=== PATIENT | female | born 1940 | race African-American/Black ===

== ENCOUNTER → 2023-09-16 | Outpatient (CLI) | payer MEDICARE, MEDICAID, SELFPAY ==
[2023-09-16 12:45] LABS: Absolute Neutrophil Count 4.4 X10^3/uL (2.0-7.7); Basophil# 0.02 X10^3/uL; Basophil% 0.3 % (0-1); Eosinophil# 0.17 X10^3/uL; Eosinophils% 2.3 % (0-5); Hemoglobin 12.9 g/dL (12.0-15.0); Lymphocyte % 28.4 % (19-41); Mean Corp Hgb Conc 32.3 g/dL (32-36); Mean Corpuscular Volume 102.3 fL (81-99); Mean Platelet Vol. 12.2 fl (6.2-12.0); Monocyte% 9.5 % (0-10); NRBC Flagged by Analyzer 0 % (0-5); Neutrophil # 4.39 X10^3/uL (2.7-7.7); Neutrophil % 59.2 % (47-70); Platelet Count 196 K/mm3 (150-450); RBC Distribution Width CV 13.1 % (11.6-14.6); RBC Distribution Width SD 49.1 fl (35.1-43.9); Red Blood Count 3.91 M/mm3 (4.2-5.4); White Blood Count 7.4 K/mm3 (4.4-11.0)
[2023-09-16 13:30] LABS: ALB/GLOB Ratio 0.7 RATIO (0.9-2.4); AST(SGOT) 22 U/L (15-37); Alanine Aminotransfer ALT/SGPT 32 U/L (13-56); Albumin, Serum 3.2 g/dL (3.2-5.0); Alkaline Phosphatase 94 U/L (45-117); Anion Gap 7 (5-15); BUN 32 mg/dL (7-18); BUN/Creat Ratio 31.1 RATIO (10-20); Calcium,Total 9.8 mg/dL (8.5-10.1); Chloride 105 mmol/L (98-107); Cholesterol 143 mg/dL (200); Creatinine, Serum 1.03 mg/dL (0.55-1.02); EST Glomerular Filtration Rate 55 mL/min (>60); Est Glom Filt Rate - Afr Amer 66 mL/min (>60); Globulin 4.3 g/dL (2.2-4.2); Glucose 221 mg/dL (74-106); High Density Lipoprotein 54 mg/dL; Potassium 3.8 mmol/L (3.5-5.1); Protein, Total 7.5 g/dL (6.4-8.2); Sodium Level 140 mmol/L (136-145); Triglycerides 188 mg/dL; Very Low Density Lipoprotein 38 mg/dL (5-40)
[2023-09-16 14:36] LABS: Microalbumin,Random Urine 60.5 mg/L (NO RANGE EST.); Microalbumin:Creatinine Ratio 66.4 mg/g CRE (<30 mg/g CRE); Vitamin B12 731 pg/mL (211-911)
== END | disposition home or self-care (01) ==
LOC: BIMLAB 09:13
PROVIDERS: PCP Internal Medicine; Referring Provider Internal Medicine; Visit Provider Internal Medicine
DX: I10 Essential (primary) hypertension (principal); E11.9 Type 2 diabetes mellitus without complications; D75.89 Other specified diseases of blood and blood-forming organs
CPT/HCPCS: 36415; 80053; 80061; 82043; 82570; 82607; 82746; 85025

== ENCOUNTER → 2024-01-25 | Outpatient (CLI) | payer MEDICARE, MEDICAID, SELFPAY ==
[2024-01-25 15:46] LABS: Anion Gap 4 (5-15); BUN 34 mg/dL (7-18); BUN/Creat Ratio 33.7 RATIO (10-20); Chloride 107 mmol/L (98-107); Creatinine, Serum 1.01 mg/dL (0.55-1.02); EST Glomerular Filtration Rate 56 mL/min (>60); Est Glom Filt Rate - Afr Amer 68 mL/min (>60); Glucose 153 mg/dL (74-106); Sodium Level 143 mmol/L (136-145)
== END | disposition home or self-care (01) ==
LOC: BIMLAB 13:31
PROVIDERS: PCP Internal Medicine; Visit Provider Internal Medicine
DX: I10 Essential (primary) hypertension (principal)
CPT/HCPCS: 36415; 80048

== ENCOUNTER 2024-07-05 13:05 | Emergency (ER) | payer MEDICARE, MEDICAID, SELFPAY ==
[2024-07-05 13:06] VITALS: BP 159/97; PULSE 76; RESP 18; TEMP 36.8; O2SAT 99; BMI 31.2
--- NOTE | 2024-07-05 13:39 | EDS_ITS ---
HPI History of Present Illness Chief Complaint: Ear Problem Narrative Narrative: 83-year-old female who is already hard of hearing presents with the feeling that her right ear is blocked up, and she is having a hard time hearing out of that ear. She relates history that she went to her primary care provider a few weeks ago, and had her ear irrigated which she thinks made it worse. She denies any fevers or chills, no other problems. [facility] Medical History Vision problems Diabetes Hx of cataract Home Medications ?Medication ?Instructions ?Recorded ?Last Taken ?Type calcium carbonate (Calcium 500) 500 mg PO DAILY 06/17/23 Unknown History multivitamin 1 tab PO DAILY 06/17/23 Unknown History aspirin 81 mg tablet,delayed 81 mg PO DAILY #90 tabs 05/16/24 Unknown Rx release atorvastatin 10 mg tablet 10 mg PO DAILY #90 tabs 05/16/24 Unknown Rx lisinopril 20 1 tab PO DAILY #90 tabs 05/16/24 Unknown Rx mg-hydrochlorothiazide 25 mg tablet metformin 500 mg tablet 500 mg PO DAILY #90 tabs 05/16/24 Unknown Rx metoprolol succinate 100 mg 100 mg PO DAILY #90 tabs 05/16/24 Unknown Rx tablet,extended release 24 hr Allergy/AdvReac Type Severity Reaction Status Date / Time shellfish derived Allergy Severe Anaphylaxis Verified 07/05/24 13:06 chocolate flavor Allergy Rash Verified 07/05/24 13:06 Family History Aunt Asthma Uncle Alcoholism Mother Hypertension Aunt Breast cancer Uncle CVA (cerebral vascular accident) Surgical History H/O skin graft Cataract extraction status Social History household members: none current occupational status: retired current occupation: [employer] Smoking Status: Never smoker Electronic Cigarette Use: not used alcohol intake: never substance use type: does not use what type of physical activity do you participate in: none do you feel safe at home: Yes ROS ROS ED ROS Narrative Constitutional: No fever, no chills. HEENT: No sore throat. No neck pain. No loss of vision. No rhinorrhea. Loss of hearing out of right ear, feels blocked up or plugged. No complaints with the left ear. Cardiovascular: No chest pain. No palpitations. No pedal edema. Respiratory: No cough, no shortness of breath. Abdominal: No abdominal pain. No nausea. No vomiting. Genitourinary: No dysuria. No hematuria. Musculoskeletal: No myalgias. No arthralgias. Neurologic: No headaches. No dizziness. No lightheadedness. Skin: No rash. No change in color. Psychiatric: No depression. No anxiety. EXAM Physical Exam Narrative Exam Narrative: Afebrile. Vital signs noted. Nontoxic-appearing. Regular rate and rhythm. Lungs clear to auscultation bilaterally. Abdomen soft nontender with normal active bowel sounds. Neurological examination nonfocal and nonlateralizing. No mastoid tenderness or erythema bilaterally. No pain with movement of auricle or tragus bilaterally. There is cerumen impaction on the right. TM is clear on the left with only a small amount of cerumen in the ear canal. Const Vital Signs: 07/05/24 13:06 Temperature 98.3 F Temperature Source Temporal Pulse Rate 76 Respiratory Rate 18 Blood Pressure 159/97 H Blood Pressure Mean 117 Pulse Ox 99 Oxygen Delivery Method Room Air MDM MDM MDM Narrative Medical decision making narrative: Differential diagnosis not applicable. Given her cerumen impaction on the right, Debrox will be instilled and attempt will be made to irrigate the right ear. Should this be unsuccessful, she will be referred to an ENT for follow-up for cerumen impaction. After Debrox and irrigation, a call to the room for reevaluation. TM is now visualized. There was maybe a small piece of tissue and the cerumen may have had a bit of a blood clot in it as well. As the TM is now visualized, I feel she can be discharged to follow-up. Disposition is discharged in stable condition. Discharge Plan Triage Chief Complaint: Ear Problem ED Provider: Obinna Lind Dx/Rx/DC Orders Clinical Impression: Impacted cerumen of right ear, Hard of hearing Instructions: ED Cerumen Impaction Treated Prescriptions: No Action multivitamin Tablet 1 tab PO DAILY calcium carbonate [Calcium 500] 500 mg calcium (1,250 mg) tablet,chewable 500 mg PO DAILY metoprolol succinate 100 mg tablet extended release 24 hr 100 mg PO DAILY Qty: 90 1RF lisinopril-hydrochlorothiazide 20-25 mg tablet 1 tab PO DAILY Qty: 90 1RF aspirin 81 mg tablet,delayed release (DR/EC) 81 mg PO DAILY Qty: 90 1RF atorvastatin 10 mg tablet 10 mg PO DAILY Qty: 90 1RF metformin 500 mg tablet 500 mg PO DAILY Qty: 90 1RF Primary Care Provider: Shirley Ortiz Referrals: Shirley Ortiz MD [Primary Care Provider] - Miguel Silva MD [Med Staff - Active Staff] - As soon as possible Print Language: Liberian Disposition Disposition: Home, Self Care
[2024-07-05 15:06] VITALS: BP 137/62; PULSE 72; RESP 15; TEMP 36.4; O2SAT 97
[2024-07-05] MEDS: Carbamide Peroxide 15 ML Bottle 5 DRP OTIC (15:10)
== END 2024-07-05 15:11 | disposition home or self-care (01) ==
PROVIDERS: Emergency Provider Emergency Medicine; PCP Internal Medicine; Visit Provider Emergency Medicine
DX: H61.21 Impacted cerumen, right ear (principal); E11.9 Type 2 diabetes mellitus without complications; Z79.84 Long term (current) use of oral hypoglycemic drugs
CPT/HCPCS: 99283

== ENCOUNTER → 2024-09-20 | Outpatient (CLI) | payer MEDICARE, MEDICAID, SELFPAY ==
[2024-09-20 15:09] LABS: Absolute Lymphocyte Count 1.92 X10^3/uL (0.83-4.51); Absolute Neutrophil Count 3.9 X10^3/uL (2.0-7.7); Basophil# 0.02 X10^3/uL; Basophil% 0.3 % (0-1); Eosinophil# 0.14 X10^3/uL; Eosinophils% 2.1 % (0-5); Hematocrit 38.6 % (37-47); Hemoglobin 12.4 g/dL (12.0-15.0); Lymphocyte # 1.92 X10^3/ul (0.83-4.51); Lymphocyte % 28.9 % (19-41); Mean Corp Hgb Conc 32.1 g/dL (32-36); Mean Corpuscular Hgb 32.5 pg (27.0-32.0); Mean Platelet Vol. 11.8 fl (6.2-12.0); Monocyte# 0.65 X10^3/uL; Monocyte% 9.8 % (0-10); NRBC Flagged by Analyzer 0 % (0-5); Neutrophil # 3.88 X10^3/uL (2.7-7.7); Neutrophil % 58.4 % (47-70); Platelet Count 170 K/mm3 (150-450); RBC Distribution Width SD 48.3 fl (35.1-43.9); Red Blood Count 3.82 M/mm3 (4.2-5.4); White Blood Count 6.6 K/mm3 (4.4-11.0)
[2024-09-20 15:28] LABS: ALB/GLOB Ratio 0.8 RATIO (0.9-2.4); AST(SGOT) 18 U/L (15-37); Alanine Aminotransfer ALT/SGPT 33 U/L (13-56); Albumin, Serum 3.1 g/dL (3.2-5.0); Alkaline Phosphatase 85 U/L (45-117); Anion Gap 4 (5-15); BUN 29 mg/dL (7-18); BUN/Creat Ratio 28.4 RATIO (10-20); Calcium,Total 9.5 mg/dL (8.5-10.1); Chloride 107 mmol/L (98-107); Cholesterol 150 mg/dL (200); Creatinine, Serum 1.02 mg/dL (0.55-1.02); EST Glomerular Filtration Rate 55 mL/min (>60); Est Glom Filt Rate - Afr Amer 67 mL/min (>60); Globulin 4.1 g/dL (2.2-4.2); Glucose 177 mg/dL (74-106); High Density Lipoprotein 59 mg/dL; Potassium 3.7 mmol/L (3.5-5.1); Protein, Total 7.2 g/dL (6.4-8.2); Sodium Level 140 mmol/L (136-145); Triglycerides 131 mg/dL; Very Low Density Lipoprotein 26 mg/dL (5-40)
[2024-09-20 15:41] LABS: Microalbumin,Random Urine 74.8 mg/L (NO RANGE EST.); Microalbumin:Creatinine Ratio 95.5 mg/g CRE (<30 mg/g CRE)
== END | disposition home or self-care (01) ==
LOC: BIMLAB 13:35
PROVIDERS: PCP Internal Medicine; Visit Provider Internal Medicine
DX: E11.9 Type 2 diabetes mellitus without complications (principal); I10 Essential (primary) hypertension
CPT/HCPCS: 36415; 80053; 80061; 82043; 82570; 85025

== ENCOUNTER → 2025-01-31 | Outpatient (CLI) | payer MEDICARE, MEDICAID, SELFPAY ==
--- NOTE | 2025-01-31 09:21 | VDLE_ITS ---
Reason For Study Reason For Study: Pain RIGHT LEFT CFV is compressible, spontaneous, phasic, competent CFV is compressible, spontaneous, phasic, competent, and demonstrates normal augmentation. and demonstrates normal augmentation. FV is compressible, spontaneous, phasic, competent FV is compressible, spontaneous, phasic, competent and demonstrates normal augmentation. and demonstrates normal augmentation. POP V is compressible, spontaneous, phasic, competent POP V is compressible, spontaneous, phasic, competent and demonstrates normal augmentation. and demonstrates normal augmentation. T/P Trunk is compressible. T/P Trunk is compressible. PTV is compressible. PTV is compressible. RT PerV is compressible. LT PerV is compressible. SFJ is competent and measures 0.65 cm. SFJ is competent and measures 0.64 cm. GSV proximal thigh measures 0.42 x 0.42 cm. GSV proximal thigh measures 0.47 x 0.51 cm. GSV above knee is competent. GSV above knee is competent. GSV at knee measures 0.37 x 0.38 cm. GSV at knee measures 0.38 x 0.35 cm. GSV below knee is INCOMPETENT for greater than 0.5 GSV below knee is INCOMPETENT for greater than 0.5 seconds. seconds. SSV mid calf is competent and measures 0.31 x 0.32 SSV mid calf is competent and measures 0.31 x 0.33 cm. cm. Procedure This is a venous duplex using B-mode, color flow and spectral Doppler. Exam performed in department. Patient was scanned in reverse Trendelenburg position during reflux assessment. VL/Venous Duplex US - Timo Extrem Interpretation Summary Deep veins of the bilateral lower extremities are patent and compressible segme ntally. There is no evidence of bilateral lower extremity deep vein thrombosis. The bilateral great saphenous veins appea r patent and compressible segmentally. Positive for reflux in the right great saphenous vein below the knee. Positive for reflux in the left great saphenous vein below the knee. Ordering Physician: Bienvenido Billings Referring Physician: Shirley Ortiz Performed By: Eulalia Archuleta RVT
--- NOTE | 2025-01-31 09:21 | ART_ITS ---
Reason For Study Reason For Study: PVD Procedure A bilateral lower extremity continuous wave Doppler with analog waveform analysis,segmental pressures,and ankle brachial indexes without exercise. Left Segmental Pressures Left brachial= 141mmHg. Left posterior tibial artery = 137mmHg. Left dorsalis pedis artery = 142mmHg. Left digit = 81 mmHg. The left dorsalis pedis waveforms are biphasic. The left posterior tibial artery waveforms are triphasic. Right Segmental Pressures Right brachial= 139mmHg. Right posterior tibial artery = 141mmHg. Right dorsalis pedis artery = 143mmHg. Right digit = 102 mmHg. The right dorsalis pedis waveforms are triphasic. The right posterior tibial artery waveforms are triphasic. Indices The right ankle brachial index by the dorsalis pedis is 1.01. The right ankle brachial index by the posterior tibial artery is 1.00. The right digital-brachial index is 0.72. The left ankle brachial index by the dorsalis pedis is 1.01. The left ankle brachial index by the posterior tibial artery is 0.97. The left digital-brachial index is 0.57. VL/Lower Ext Art Exam w/o Exercis Interpretation Summary Right ERICK 1.01, normal. Doppler/PVR waveforms of the right leg normal at rest. 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 Left ERICK 1.01, normal. Doppler/PVR waveforms of the left leg normal at rest. TB I diminished, pedal/digit disease vs spasm. Ordering Physician: Bienvenido Billings Referring Physician: Shirley Ortiz Performed By: Eulalia Archuleta RVT
== END | disposition home or self-care (01) ==
LOC: CVS 09:18
PROVIDERS: PCP Internal Medicine; Referring Provider Podiatrist; Visit Provider Podiatrist
DX: I73.89 Other specified peripheral vascular diseases (principal); M79.604 Pain in right leg; M79.605 Pain in left leg; R22.41 Localized swelling, mass and lump, right lower limb; R22.42 Localized swelling, mass and lump, left lower limb
CPT/HCPCS: 93923; 93970

== ENCOUNTER → 2025-02-21 | Outpatient (CLI) | payer MEDICARE, MEDICAID, SELFPAY ==
--- NOTE | 2025-02-21 12:50 | ECHOD_ITS ---
Reason For Study Reason For Study: Murmur Procedure This was a 2D Doppler, Color Flow transthoracic echocardiogram. Exam performed in department. Left Ventricle Normal LV size. Left ventricular systolic function is normal. The left ventricular ejection fraction is 60 %. No regional wall motion abnormalities noted. Right Ventricle Normal RV size. Normal systolic function. Atria Normal left atrium. Normal right atrium. Bubble contrast study negative for right to left interatrial shunt. Mitral Valve There is mild to moderate mitral annular calcification. Tricuspid Valve Normal tricuspid valve. Aortic Valve Trisinus/trileaflet aortic valve. Mild focal aortic valve calcification. Pulmonic Valve Normal pulmonic valve. Great Vessels Normal aortic root. The pulmonary artery is normal size. Normal inferior vena cava. Pericardium/Pleural No pericardial effusion. MMode/2D Measurements & Calculations LVIDd: 3.4 cm IVSd: 0.87 cm LVOT diam: 2.0 cm LVIDs: 1.9 cm LVPWd: 0.84 cm LVOT area: 3.3 cm2 RVDd: 3.7 cm FS: 44.4 % Ao root diam: 3.3 cm LAV(MOD-sp4): 70.6 ml LVAd ap4: 18.8 cm2 ACS: 0.78 cm LVLd ap4: 6.2 cm EDV(MOD-sp4): 47.1 ml EDV(sp4-el): 48.4 ml LVAs ap4: 10.0 cm2 LVLs ap4: 5.0 cm ESV(MOD-sp4): 17.0 ml ESV(sp4-el): 17.0 ml EF(MOD-sp4): 63.9 % EF(sp4-el): 64.8 % SV(MOD-sp4): 30.1 ml SV(sp4-el): 31.3 ml LA A4 area: 22.2 cm2 SI(MOD-sp4): 15.9 ml/m2 LA dimension(2D): 3.6 cm RA A4 area: 11.9 cm2 TAPSE: 2.7 cm Time Measurements MV dec time: 0.33 sec Doppler Measurements & Calculations MV E max breezy: 85.4 cm/sec Lat Peak E' Breezy: 5.4 cm/sec Med Peak E' Breezy: 5.0 cm/sec MV A max breezy: 137.2 cm/sec E/E' lat: 15.8 E/E' med: 17.1 MV E/A: 0.62 MV V2 max: 138.8 cm/sec Ao V2 max: 258.4 cm/sec MV max P.7 mmHg MV dec slope: 257.7 cm/sec2 Ao max P.8 mmHg MV V2 mean: 82.0 cm/sec Ao V2 mean: 185.5 cm/sec MV mean P.1 mmHg Ao mean P.4 mmHg MV V2 VTI: 36.7 cm Ao V2 VTI: 61.5 cm AV (velocity ratio): 0.52 MVA(VTI): 2.8 cm2 DEMETRIO(I,D): 1.7 cm2 DEMETRIO(V,D): 1.7 cm2 LV V1 max: 131.0 cm/sec SV(LVOT): 104.6 ml PA V2 max: 83.2 cm/sec LV V1 max P.9 mmHg LV V1 mean P.3 mmHg LV V1 mean: 101.1 cm/sec LV V1 VTI: 31.7 cm TR max breezy: 301.8 cm/sec TR max P.4 mmHg ECHO/Echo Complete Interpretation Summary Normal LV size. Left ventricular systolic function is normal. The left ventricular ejection fraction is 60 %. Bubble contrast study negative for right to left interatrial shunt. There is mild to moderate mitral annular calcification. Ordering Physician: Shirley Ortiz Referring Physician: Shirley Ortiz Performed By: Viji Bernardo, MEGAN, RVT
--- NOTE | 2025-02-21 13:57 | BD_ITS ---
EXAM: DEXA examination of lumbar spine and both hips. CLINICAL HISTORY: 84-year-old female who is postmenopausal. COMPARISON: None TECHNIQUE: DEXA examination of lumbar spine and both hips. FINDINGS: T-SCORES and BMD Lumbar spine: Bone mineral density measures (1.096) g/cm2; T-score measures -0.4. Z-score measures 2.6. Left femoral neck: Bone mineral density measures (0.713) g/cm2; T-score measures -1.7. Z-score measures 0.2. Left total hip: Bone mineral density measures (0.956) g/cm2; T-score measures -0.5. Z-score measures 1.2 Right femoral neck: Bone mineral density measures (0.699) g/cm2; T-score measures -1.8. Z-score measures 0.1. Right total hip: Bone mineral density measures (0.934) g/cm2; T-score measures -0.6. Z-score measures 1.0 Fracture Risk Calculation 10 Year Probability of Fracture: Major Osteoporotic Fracture: 5.4% Hip Fracture: 1.2% BD/Dexa Bone Density Study IMPRESSION: Patient demonstrates osteopenia of both hips. Patient demonstrates normal bone mineral density of the lumbar spine. Reading Location: [id number]
== END | disposition home or self-care (01) ==
LOC: CVS 12:45
PROVIDERS: PCP Internal Medicine; Referring Provider Internal Medicine; Visit Provider Internal Medicine
DX: R01.1 Cardiac murmur, unspecified (principal); Z78.0 Asymptomatic menopausal state; M85.851 Other specified disorders of bone density and structure, right thigh; M85.852 Other specified disorders of bone density and structure, left thigh
CPT/HCPCS: 77080; 93306; A4216

== ENCOUNTER 2025-08-21 16:13 | Emergency (ER) | payer MEDICARE, MEDICAID, SELFPAY ==
[2025-08-21 16:14] VITALS: BP 146/67; PULSE 82; RESP 16; TEMP 37.2; O2SAT 97; BMI 30.3
--- NOTE | 2025-08-21 19:14 | ED.VIS.BACK ---
HPI History of Present Illness Chief Complaint: Back [facility] Medical History (Updated 08/21/25 @ 20:[address] Mason Antonio DO) Cholecystectomy planned Vision problems Diabetes Hx of cataract Home Medications ?Medication ?Instructions ?Recorded ?Last Taken ?Type multivitamin 1 tab PO DAILY 06/17/23 Unknown History calcium carbonate (Calcium 500) 600 mg PO DAILY 01/23/25 Unknown History aspirin 81 mg tablet,delayed 81 mg PO DAILY #90 tabs 05/09/25 Unknown Rx release atorvastatin 10 mg tablet 10 mg PO DAILY #90 tabs 05/09/25 Unknown Rx lisinopril 20 1 tab PO DAILY #90 tabs 05/09/25 Unknown Rx mg-hydrochlorothiazide 25 mg tablet metformin 500 mg tablet 500 mg PO BID #180 tabs 05/09/25 Unknown Rx metoprolol succinate 100 mg 100 mg PO DAILY #90 tabs 05/09/25 Unknown Rx tablet,extended release 24 hr sulfamethoxazole 800 1 tab PO BID 5 days #10 tabs 08/21/25 Unknown Rx mg-trimethoprim 160 mg tablet (Bactrim DS) Allergy/AdvReac Type Severity Reaction Status Date / Time shellfish derived Allergy Severe Anaphylaxis Verified 08/21/25 16:14 chocolate flavor Allergy Rash Verified 08/21/25 16:14 Family History Aunt Asthma Uncle Alcoholism Mother Hypertension Aunt Breast cancer Uncle CVA (cerebral vascular accident) Surgical History H/O skin graft Cataract extraction status Social History household members: none current occupational status: retired current occupation: [employer] Smoking Status: Never smoker Electronic Cigarette Use: not used alcohol intake: never substance use type: does not use what type of physical activity do you participate in: none do you feel safe at home: Yes EXAM Physical Exam Const Vital Signs: 08/21/25 16:14 Temperature 98.9 F Temperature Source Oral Pulse Rate 82 Respiratory Rate 16 Blood Pressure 146/67 H Blood Pressure Mean 93 Pulse Ox 97 Oxygen Delivery Method Room Air MDM MDM MDM Narrative Medical decision making narrative: HISTORY OF PRESENT ILLNESS: Chief complaint: Lump/cyst 84-year-old female history of type 2 diabetes, hypertension presents with concern for lump, cyst?. Notes this appeared several days ago. She further states she has no fever or vomiting. Notes history of similar issues in the past REVIEW OF SYSTEMS: Pertinent positives: Cyst/boil Pertinent negatives: Fever, vomiting PHYSICAL EXAM: Nursing triage notes reviewed, Vital signs reviewed Constitutional: please see mdm Lungs: Clear to auscultation, No wheezing or rales. No increased work of breathing, no conversational dyspnea, no accessory muscle use, no nasal flaring. No respiratory distress noted Heart: Regular rate and rhythm, No murmurs, No rubs and No gallops, 2+ distal pulses (radial, femoral, posterior tibial) in all extremities Back: Skin: Approximate 2 x 2 cm area of fluctuance noted to the left scapular region. There is no overlying bullae, crepitus or fluctuance MEDICAL DECISION MAKING: Chief Complaint: please see HPI MDM Narrative: The patient was initially hemodynamically stable, afebrile and nontoxic-appearing. Exam consistent with left scapular abscess. Procedure: Incision and Drainage of a simple abscess The procedure was performed by myself. Verbal consent obtained. Location: Left scapular region Risks and benefits: Risks, benefits, and alternatives were discussed. Questions were sought and answered, and verbal consent provided for the procedure. Anesthesia: Topical let, 1% lidocaine Procedure Description: Placed 11 blade with a steel 8 incision, the loculated with pickups. Expectorated with gentle massage. Expectorated approximately 5 cc of purulent fluid. The patient tolerated the procedure well without complications. Oral antibiotics given here for home-going The patient and/or family, caregivers express understanding. The patient and/or family, caregivers agrees with the plan. Shared decision making: I will have a discussion with the patient and or visitors regarding risk/benefits of further testing or admission. They will be made aware of of the risk/benefits inherent in this decision they will be given the opportunity to voice understanding. Total critical care time today provided was at least 0 minutes. This excludes separately billable procedures. Critical care time (if documented) is secondary to the patient having high probability of clinically significant/life threatening deterioration in the patient's condition which required my urgent intervention. Impression: 1. Back abscess 2. History of hypertension Dispo: Discharge This note was generated with [employer] dictation software. It may contain incorrect words, spelling, and punctuation that were not noted in review of the chart prior to signing. Discharge Plan Triage Chief Complaint: Back ED Provider: Mason Antonio Dx/Rx/DC Orders Clinical Impression: Abscess Instructions: Abscess Drainage Prescriptions: New sulfamethoxazole-trimethoprim [Bactrim DS] 800-160 mg tablet 1 tab PO BID 5 Days Qty: 10 0RF No Action multivitamin Tablet 1 tab PO DAILY calcium carbonate [Calcium 500] 500 mg calcium (1,250 mg) tablet,chewable 600 mg PO DAILY atorvastatin 10 mg tablet 10 mg PO DAILY Qty: 90 1RF aspirin 81 mg tablet,delayed release (DR/EC) 81 mg PO DAILY Qty: 90 1RF lisinopril-hydrochlorothiazide 20-25 mg tablet 1 tab PO DAILY Qty: 90 1RF metformin 500 mg tablet 500 mg PO BID Qty: 180 1RF metoprolol succinate 100 mg tablet extended release 24 hr 100 mg PO DAILY Qty: 90 1RF Primary Care Provider: Shirley Ortiz Referrals: Shirley Ortiz MD [Primary Care Provider, Internal Medicine] Activity Restrictions/Additional Instructions: Thank you for trusting us with your care today! Your presentation today is consistent with an abscess. There is a local area of infection. Is likely secondary to infected hair follicle from normal bacteria that is present on your skin. Please keep area clean and dry. Please cleanse wound with soap and water. Please take antibiotics until course is complete. Please take Tylenol (2 pills, 650 mg), ibuprofen (2 pills, 400 mg) every 6 hours as needed for pain and fever control. Please return to the emergency department if your symptoms change or worsen. Please follow with your primary care physician for further outpatient evaluation and management. Print Language: Guyanese Disposition Disposition: Home, Self Care
--- OUTSIDE RECORDS SUMMARY | 2025-08-21 19:37 | XMS RPT_ITS | CCD ---
Author Organization [facility] Care Team Providers Care Nuclear Officer Name Role Phone Dr. Ree Gates S Primary Care Provider [phone] Dr. Ree Gates Referring Provider [phone] Dr. Shirley Ortiz Attending Provider [phone] Shirley Ortiz Primary Care Provider Dr. Shirley Ortiz Attending Provider Dr. Shirley Ortiz Referring Provider Dr. Shirley Ortiz MD Primary Care Provider [phone] Dr. Shirley Ortiz MD Attending Provider Dr. Shirley Ortiz MD Referring Provider Dr. Bienvenido Billings DPM Attending Provider Dr. Bienvenido Billings DPM Referring Provider Dr. Paul Sheldon MD Attending Provider Leilani CISNEROS, Dr. Ponce Attending Provider Shirley Ortiz Referring Unavailable Diana, Shirley Primary Care Unavailable Shirley Ortiz Attending Unavailable Kris Duke Attending Unavailable [place], Shirley Primary Care Unavailable [place], Shirley Primary Care Unavailable Bienvenido Billings Referring Unavailable Paul Sheldon Attending Unavailable Diana, Shirley Referring Unavailable [place], Shirley Primary Care Unavailable Shirley Ortiz Attending Unavailable Diana, Shirley Referring Unavailable [place], Shirley Primary Care Unavailable [place], Shirley Attending Unavailable Diana, Shirley Referring Unavailable [place], Shirley Attending Unavailable Diana, Shirley Primary Care Unavailable Diana, Shirley Attending Unavailable Diana, Shirley Primary Care Unavailable [place], Shirley Primary Care Unavailable Bienvenido Billings Attending Unavailable Bienvenido Billings Referring Unavailable Obinna Lind Attending Unavailable Diana, Shirley Primary Care Unavailable Diana, Shirley Referring Unavailable Diana, Shirley Attending Unavailable [place], Shirley Primary Care Unavailable Allergies Allergy Classification Reported Allergen(s) Allergy Type Date of Onset Reaction(s) Facility (6 sources) Chocolate; Translations: [chocolate flavor] Allergy to substance 09-16-[address] [facility] (6 sources) Shellfish; Translations: [shellfish derived] Allergy to substance 09-16-[address] [facility] Medications Current Medications Medication Drug Class(es) Dates Sig (Normalized) Sig (Original) aspirin 81 mg delayed release oral tablet (18 sources) Platelet Aggregation Inhibitor, Nonsteroidal Anti-inflammatory Drug Start: 06-17-2023 End: 05-09-2025 take 1 tablet by mouth once daily Aspirin 81 mg tablet,delayed release (DR/EC) Active 81 mg PO DAILY 90 May 09, 2025 1:45pm calcium carbonate 1250 mg chewable tablet (8 sources) Start: 01-23-2025 Calcium Carbonate (Calcium 500) 500 mg calcium (1,250 mg) tablet,chewable Active 600 mg PO DAILY January 23, 2025 1:54pm Start: 06-17-2023 End: 01-23-2025 take 1 tablet by mouth once daily Calcium Carbonate (Calcium 500) 500 mg calcium (1,250 mg) tablet,chewable Discontinued 500 mg PO DAILY June 17, 2023 12:00am January 23, 2025 1:54pm metFORMIN hydrochloride 500 mg oral tablet (20 sources) Biguanide Start: 01-23-2025 End: 05-09-2025 take 1 tablet by mouth twice daily Metformin 500 mg tablet Active 500 mg PO TWICE A DAY 180 May 09, 2025 2:07pm Start: 06-17-2023 End: 02-24-2025 take 1 tablet by mouth once daily Metformin 500 mg tablet Discontinued 500 mg PO DAILY May 16, 2024 11:02am September 20, 2024 1:07pm Multivitamin preparation (2 sources) Start: 06-17-2023 take 1 tablet by mouth once daily Multivitamin Active 1 TABLET PO DAILY June 16, 2023 11:00pm Start: 06-17-2023 take 1 tablet by moi th once daily Multivitamin Active 1 TABLET PO DAILY June 17, 2023 12:00am Multivitamin tablet (3 sources) Start: 06-17-2023 Multivitamin t ablet Active 1 {tbl} PO DAILY June 17, 2023 12:00am Completed/Discontinued Medications Medication Drug Class(es) Dates Sig (Normalized) Sig (Original) atorvastatin 10 mg oral tablet (20 sources) HMG-CoA Reductase Inhibitor Start: 06-17-2023 End: 05-09-2025 take 1 tablet by mouth once daily Atorvastatin 10 mg tablet Discontinued 10 mg PO DAILY May 16, 2024 11:02am September 20, 2024 1:07pm hydroCHLOROthiazide 25 mg / lisinopril 20 mg oral tablet (20 sources) Thiazide Diuretic, Angiotensin Converting Enzyme Inhibitor Start: 06-17-2023 End: 05-09-2025 Lisinopril-Hydroc hlorothiazide 20-25 mg tablet Discontinued 1 {tbl} PO DAILY May 16, 2024 11:02am September 20, 2024 1:07pm Start: 06-17-2023 End: 11-16-2023 take 1 tablet by mouth once daily Lisinopril-Hydrochlorothiazide Active 1 TABLET PO DAILY November 16, 2023 8:18am 24 hr metoprolol succinate 100 mg extended release oral tablet (20 sources) beta-Adrenergic Yolande Start: 06-17-2023 End: 05-09-2025 take 1 tablet by mouth once daily Metoprolol Succinate 100 mg tablet extended release 24 hr Discontinued 100 mg PO DAILY May 16, 2024 11:02am September 20, 2024 1:07pm Problems Active Problems Problem Classification Problem Date Documented Date Episodic/Chronic Administrative/social admission (1 source) Persons encountering health services in other specified circumstances; Translations: [Other reasons for seeking consultation] 06-17-2023 Episodic Blindness and vision defects (5 sources) Disorder of vision; Translations: [Unspecified visual loss] 06-17-2023 Chronic Diabetes mellitus without complication (13 sources) Diabetes mellitus; Translations: [Type 2 diabetes mellitus without complications] Onset: 05-09-2025 06-17-2023 Chronic Disorders of teeth and jaw (1 source) Erosion of teeth; Translations: [Erosion, unspecified] 09-16-2023 Episodic Essential hypertension (13 sources) Essential hypertension; Translations: [Essential (primary) hypertension] Onset: 09-20-2024 06-16-2023 Chronic Heart valve disorders (5 sources) Heart murmur; Translations: [Cardiac murmur, unspecified] Onset: 02-26-2025 01-23-2025 Episodic Immunizations and screening for infectious disease (1 source) Encounter for immunization; Translations: [Need for prophylactic vaccination and inoculation against unspecified single disease] 09-16-2023 Episodic Other circulatory disease (1 source) Other specified peripheral vascular diseases; Translations: [Other specified peripheral vascular diseases] Onset: 02-10-2025 Chronic Other ear and sense organ disorders (9 sources) Hearing loss; Translations: [Unspecified hearing loss, unspecified ear] 06-17-2023 Chronic Other ear and sense organ disorders (2 sources) Unspecified hearing loss, unspecified ear; Translations: [Unspecified hearing loss] 06-17-2023 Chronic Other ear and sense organ disorders (1 source) Unspecified hearing loss, bilateral; Translations: [Unspecified hearing loss, bilateral] Onset: 06-13-2024 Chronic Other ear and sense organ disorders (3 sources) Impacted cerumen; Translations: [Impacted cerumen, right ear] 07-13-2024 Episodic Other nervous system disorders (5 sources) H/O: cataract; Translations: [Personal history of other diseases of the nervous system and sense organs] 06-17-2023 Episodic Other screening for suspected conditions (not mental disorders or infectious disease) (1 source) Other specified abnormal findings of blood chemistry; Translations: [Other nonspecific findings on examination of blood] 01-25-2024 Episodic Residual codes; unclassified (4 sources) Edema of lower extremity; Translations: [Localized edema] 01-23-2025 Episodic Residual codes; unclassified (4 sources) Postmenopausal state; Translations: [Asymptomatic menopausal state] 01-23-2025 Episodic Screening and history of mental health and substance abuse codes (1 source) Patient encounter status; Translations: [Encounter for screening for depression] 05-09-2025 Episodic Past or Other Problems Problem Classification Problem Date Documented Da te Episodic/Chronic Other ear and sense organ disorders (1 source) Impacted cerumen, right ear; Translations: [Impacted cerumen, right ear] Onset: 08-15-2024 Episodic Residual codes; unclassified (1 source) Asymptomatic menopausal state; Translations: [Asymptomatic menopausal state] Onset: 01-23-2025 Episodic Results Test Name Value Interpretation Reference Range Facility Internal Medicine Office Vis iton 05-08-2025 Internal Medicine Office Visit [facility] [address] [place] [address] [place] [address] OFFICE VISIT Date of Service: 05/09/25 MR#: [id number] Acct: [id number] Name: IVAN DE JESUS Rep #: [id number] : 1940 Provider: Dr. Shirley caraballo MD Age/Sex: 84/F Location: [facility] Status: Signed Intake Vital Signs 01/23/25 12:53 05/09/25 13:29 Height 5 ft 4 in 5 ft 6 in Weight: 194 lb BMI 31.3 BP 124/64 H Blood Pressure Location Lt brachial Position Sitting Respiration 20 H Pulse 74 Pulse Source Monitor Temp 97.1 F L Temp Source Temporal Pulse Oximetry (%) 95 Oxygen Delivery Method room air Intake Visit Reasons: 3 M FU Chief Complaint: f/u [employer] Interpreter Required: No Accompanied by: Self Is patient in pain?: No Allergies shellfish derived Allergy (Severe, Verified 05/09/25 13:19) Anaphylaxis chocolate flavor Allergy (Verified 05/09/25 13:19) Rash Medications ???Medication ???Instructions ???Recorded ???Confirmed ???Type multivitamin 1 tab PO DAILY 06/17/23 05/09/25 H istory calcium carbonate (Calcium 500) 600 mg PO DAILY 01/23/25 05/09/25 History aspirin 81 mg tablet,delayed 81 mg PO DAILY #90 tabs 05/09/25 0 05/09/25 Rx release atorvastatin 10 mg tablet 10 mg PO DAILY #90 tabs 05/09/25 0 05/09/25 Rx lisinopril 20 1 tab PO DAILY #90 tabs 05/09/25 0 05/09/25 Rx mg-hydrochlorothia zide 25 mg tablet metformin 500 mg tablet 500 mg PO BID #180 tabs 05/09/25 0 05/09/25 Rx metoprolol succinate 100 mg 100 mg PO DAILY #90 tabs 05/09/25 05/09/25 Rx tablet,extended release 24 hr Have you fallen in the past year?: No PFSH Medical History Vision problems Diabetes Hx of cataract Surgical History H/O skin graft Cataract extraction status Family History Aunt Asthma Uncle Alcoholism Mother Hypertension Aunt Breast cancer Uncle CVA (cerebral vascular accident) Social History household members: none current occupational status: retired current occupation: [employer] Smoking Status: Never smoker Electronic Cigarette Use: not used alcohol intake: never substance use type: does not use what type of physical activity do you participate in: none do you feel safe at home: Yes Questionnaire [facility]-9 BMS Over the last 2 weeks, how often have you been bothered by any of the following problems? 1. Little interest or pleasure in doing things: several days 2. Feeling down, depressed, or hopeless: not at all 3. Trouble falling or staying asleep, or sleeping too much: not at all 4. Feeling tired or having little energy: not at all 5. Poor appetite or overeating: not at all 6. Feeling bad about yourself - or that you are a failure or have let yourself and your family down: not at all 7. Trouble concentrating on things, such as reading the newspaper or watching television: not at all 8. Moving or speaking so slowly that other people could have noticed? - Or the opposite - being so fidgety or restless that you have been moving around a lot more than usual: not at all 9. Thoughts that you would be better off or of hurting yourself in some way: not at all Total score: 1 If you checked off any problems, how difficult have these problems made it for you to do your work, take care of things at home, or get along with other people?: not difficult at all Source: Developed by Drs. Kaz Chavez, Cheryl Simmons, Edmond Abernathy and colleagues, with an educational khang from [employer]. [facility] HPI Chief Complaint: f/u Details: IVAN DE JESUS, is a 84 F who presents to the office today for a follow up. She is up to date on her routine blood work. She thinks she is up to date on her screening. She isn't due for any immunizations. She doesn't smoke and does need refills. She reports she is trying to eat healthy. She reports she isn't walking as much as she was, but is thinking of increasing it with the improved weather. She doesn't check her blood pressure at home regularly. She is taking her medication as prescribed without problems. She does try to monitor her salt intake stating she doesn't use salt in her cooking. She doesn't check her sugars at home. She takes her metformin as prescribed without problems. She does try to monitor her carbohydrate and sugar intake. She is up to date on her eye exam stating she has another later this month. She does see podiatry. She did get her diabetic shoes since she was last seen. She reports she has been wearing her hearing aids. She states they seem to work sometimes better than others. She continues to have difficulty hearing people and plans on scheduling a follow up (more content not included)... Normal [facility] Bone density reportOrdered B y: Margaret Harris on 02-23-2025 Study report Skeletal system DXA [facility] Imaging Services [address] [place] [address] Dexa Bone Density Study MR#: [id number] Acct: [id number] Name: IVAN DE JESUS Rep #: [id number] : 1940 F 84 From: Jose E Harris DO PCP: Dr. Shirley Ortiz MD Status: [facility] CLI Study:Dexa Bone Density Study Date of Exam: 02/21/25 Exam# [id number] Ordering Dr: Shirley Ortiz MD EXAM: DEXA examination of lumbar spine and both hips. CLINICAL HISTORY: 84-year-old female who is postmenopausal. COMPARISON: None TECHNIQUE: DEXA examination of lumbar spine and both hips. FINDINGS: T-SCORES and BMD Lumbar spine: Bone mineral density measures (1.096) g/cm2; T-score measures -0.4. Z-score measures 2.6. Left femoral neck: Bone mineral density measures (0.713) g/cm2; T-score measures -1.7. Z-score measures 0.2. Left total hip: Bone mineral density measures (0.956) g/cm2; T-score measures -0.5. Z-score measures 1.2 Right femoral neck: Bone mineral density measures (0.699) g/cm2; T-score measures -1.8. Z-score measures 0.1. Right total hip: Bone mineral density measures (0.934) g/cm2; T-score measures -0.6. Z-score measures 1.0 Fracture Risk Calculation 10 Year Probability of Fracture: Major Osteoporotic Fracture: 5.4% Hip Fracture: 1.2% BD/Dexa Bone Density Study IMPRESSION: Patient demonstrates osteopenia of both hips. Patient demonstrates normal bone mineral density of the lumbar spine. Reading Location: [id number] CC: Dr. Shirley Ortiz MD ~ Senior Receptionist: Signed [facility] Dexa Bone Density Studyon Dexa Bone Density Study [facility] Imaging Services [address] [place] [id number] Dexa Bone Density Study MR#: [id number] Acct: [id number] Name: IVAN DE JESUS Rep #: [id number] : 1940 F 84 From: Margaret Worrell PCP: Dr. Shirley Ortiz MD Status: [facility] CLI Study: Dexa Bone Density Study Date of Exam: 02/21/25 Exam# [id number] Ordering Dr: Shirley Ortiz MD EXAM: DEXA examination of lumbar spine and both hips. CLINICAL HISTORY: 84-year-old female who is postmenopausal. COMPARISON: None TECHNIQUE: DEXA examination of lumbar spine and both hips. FINDINGS: T-SCORES and BMD Lumbar spine: Bone mineral density measures (1.096) g/cm2; T-score measures -0.4. Z-score measures 2.6. Left femoral neck: Bone mineral density measures (0.713) g/cm2; T-score measures -1.7. Z-score measures 0.2. Left total hip: Bone mineral density measures (0.956) g/cm2; T-score measures -0.5. Z- score measures 1.2 Right femoral neck: Bone mineral density measures (0.699) g/cm2; T-score measures -1.8. Z-score measures 0.1. Right total hip: Bone mineral density measures (0.934) g/cm2; T-score measures -0.6. Z-score measures 1.0 Fracture Risk Calculation 10 Year Probability of Fracture: Major Osteoporotic Fracture: 5.4% Hip Fracture: 1.2% BD/Dexa Bone Density Study IMPRESSION: Patient demonstrates osteopenia of both hips. Patient demonstrates normal bone mineral density of the lumbar spine. Reading Location: [id number] CC: Dr. Shirley Ortiz MD Senior Receptionist: Signed Normal [facility] Echo Completeon 02-21-2025 Echo [facility] Cardiovascular Services [address] [place] [address] Echo Complete 02/21/25 1255 MR#: [id number] Acct: [id number] Name: IVAN DE JESUS Rep #: [id number] : 1940 84 From: Kris Duke MD Attending Dr: Dr. Shirley Ortiz MD Status: [facility] Ordering Dr: Shirley Ortiz MD Date: 02/21/25 Location: [facility] Sex: F AA Admitted: Reason For Study Reason For Study: Murmur Procedure This was a 2D Doppler, Color Flow transthoracic echocardiogram. Exam performed in department. Left Ventricle Normal LV size. Left ventricular systolic function is normal. The left ventricular ejection fraction is 60 %. No regional wall motion abnormalities noted. Right Ventricle Normal RV size. Normal systolic function. Atria Normal left atrium. Normal right atrium. Bubble contrast study negative for right to left interatrial shunt. Mitral Valve There is mild to moderate mitral annular calcification. Tricuspid Valve Normal tricuspid valve. Aortic Valve Trisinus/trileafle t aortic valve. Mild focal aortic valve calcification. Pulmonic Valve Normal pulmonic valve. Great Vessels Normal aortic root. The pulmonary artery is normal size. Normal inferior vena cava. Pericardium/Pleura l No pericardial effusion. MMode/2D Measurements Calculations LVIDd: 3.4 cm IVSd: 0.87 cm LVOT diam: 2.0 cm LVIDs: 1.9 cm LVPWd: 0.84 cm LVOT area: 3.3 cm2 RVDd: 3.7 cm FS: 44.4 % Ao root diam: 3.3 cm LAV(MOD-sp4): 70.6 ml LVAd ap4: 18.8 cm2 ACS: 0.78 cm LVLd ap4: 6.2 cm EDV(MOD-sp4): 47.1 ml EDV(sp4-el): 48.4 ml LVAs ap4: 10.0 cm2 LVLs ap4: 5.0 cm ESV(MOD-sp4): 17.0 ml ESV(sp4-el): 17.0 ml EF(MOD-sp4): 63.9 % EF(sp4-el): 64.8 % SV(MOD-sp4): 30.1 ml SV(sp4-el): 31.3 ml LA A4 area: 22.2 cm2 SI(MOD-sp4): 15.9 ml/m2 LA dimension(2D): 3.6 cm RA A4 area: 11.9 cm2 TAPSE: 2.7 cm Time Measurements MV dec time: 0.33 sec Doppler Measurements Calculations MV E max breezy: 85.4 cm/sec Lat Peak E' Breezy: 5.4 cm/sec Med Peak E' Breezy: 5.0 cm/sec MV A max breezy: 137.2 cm/sec E/E' lat: 15.8 E/E' med: 17.1 MV E/A: 0.62 MV V2 max: 138.8 cm/sec Ao V2 max: 258.4 cm/sec MV max P.7 mmHg MV dec slope: 257.7 cm/sec2 Ao max P.8 mmHg MV V2 mean: 82.0 cm/sec Ao V2 mean: 185.5 cm/sec MV mean P.1 mmHg Ao mean P.4 mmHg MV V2 VTI: 36.7 cm Ao V2 VTI: 61.5 cm AV (velocity ratio): 0.52 MVA(VTI): 2.8 cm2 DEMETRIO(I,D): 1.7 cm2 DEMETRIO(V,D): 1.7 cm2 LV V1 max: 131.0 cm/sec SV(LVOT): 104.6 ml PA V2 max: 83.2 cm/sec LV V1 max P.9 mmHg LV V1 mean P.3 mmHg LV V1 mean: 101.1 cm/sec LV V1 VTI: 31.7 cm TR max breezy: 301.8 cm/sec TR max P.4 mmHg ECHO/Echo Complete Interpretation Summary Normal LV size. Left ventricular systolic function is normal. The left ventricular ejection fraction is 60 %. Bubble contrast study negative for right to left interatrial shunt. There is mild to moderate mitral annular calcification. Ordering Physician: Shirley Ortiz Referring Physician: Shirley Ortiz Performed By: Viji Bernardo, MEGAN, RVT 02/21/25 1537 Date Kris Duke MD CC: Dr. Shirley Ortiz MD Date Dictated: 02/21/251254 Date Transcribed: 02/21/251536 Senior Receptionist: Signed Normal [facility] Echocardiogram study reportO rdered By: Kris Duke on 02-21-2025 Study report [facility] Cardiovascular Services [address] [place] [address] Echo Complete 02/21/251254 MR#: [id number] Acct: [id number] Name: IVAN DE JESUS Rep #:[id number] : 1940 84 From: Kris Carr Attending Dr: Dr. Shirley Ortiz MD Status: REG CLI Ordering Dr: Shirley Ortiz MD Date: 02/21/25 Location: [facility] Sex: F AA Admitted: Reason For Study Reason For Study: Murmur Procedure This was a 2D Doppler, Color Flow transthoracic echocardiogram. Exam performed in department. Left Ventricle Normal LV size. Left ventricular systolic function is normal. The left ventricular ejection fraction is 60 %. No regional wall motion abnormalities noted. Right Ventricle Normal RV size. Normal systolic function. Atria Normal left atrium. Normal right atrium. Bubble contrast study negative for right to left interatrial shunt. Mitral Valve There is mild to moderate mitral annular calcification. Tricuspid Valve Normal tricuspid valve. Aortic Valve Trisinus/trileafle t aortic valve. Mild focal aortic valve calcification. Pulmonic Valve Normal pulmonic valve. Great Vessels Normal aortic root. The pulmonary artery is normal size. Normal inferior vena cava. Pericardium/Pleura l No pericardial effusion. MMode/2D Measurements & Calculations LVIDd: 3.4 cm IVSd: 0.87 cm LVOT diam: 2.0 cm LVIDs: 1.9 cm LVPWd: 0.84 cm LVOT area: 3.3 cm2 RVDd: 3.7 cm FS: 44.4 % Ao root diam: 3.3 cm LAV(MOD-sp4): 70.6 ml LVAd ap4: 18.8 cm2 ACS: 0.78 cm LVLd ap4: 6.2 cm EDV(MOD-sp4): 47.1 ml EDV(sp4-el): 48.4 ml LVAs ap4: 10.0 cm2 LVLs ap4: 5.0 cm ESV(MOD-sp4): 17.0 ml ESV(sp4-el): 17.0 ml EF(MOD-sp4): 63.9 % EF(sp4-el): 64.8 % SV(MOD-sp4): 30.1 ml SV(sp4-el): 31.3 ml LA A4 area: 22.2 cm2 SI(MOD-sp4): 15.9 ml/m2 LA dimension(2D): 3.6 cm RA A4 area: 11.9 cm2 TAPSE: 2.7 cm Time Measurements MV dec time: 0.33 sec Doppler Measurements & Calculations MV E max breezy: 85.4 cm/sec Lat Peak E' Breezy: 5.4 cm/sec Med Peak E' Breezy: 5.0 cm/sec MV A max breezy: 137.2 cm/sec E/E' lat: 15.8 E/E' med: 17.1 MV E/A: 0.62 MV V2 max: 138.8 cm/sec Ao V2 max: 258.4 cm/sec MV max P.7 mmHg MV dec slope: 257.7 cm/sec2 Ao max P.8 mmHg MV V2 mean: 82.0 cm/sec Ao V2 mean: 185.5 cm/sec MV mean P.1 mmHg Ao mean P.4 mmHg MV V2 VTI: 36.7 cm Ao V2 VTI: 61.5 cm AV (velocity ratio): 0.52 MVA(VTI): 2.8 cm2 DEMETRIO(I,D): 1.7 cm2 DEMETRIO(V,D): 1.7 cm2 LV V1 max: 131.0 cm/sec SV(LVOT): 104.6 ml PA V2 max: 83.2 cm/sec LV V1 max P.9 mmHg LV V1 mean P.3 mmHg LV V1 mean: 101.1 cm/sec LV V1 VTI: 31.7 cm TR max breezy: 301.8 cm/sec TR max P.4 mmHg ECHO/Echo Complete Interpretation Summary Normal LV size. Left ventricular systolic function is normal. The left ventricular ejection fraction is 60 %. Bubble contrast study negative for right to left interatrial shunt. There is mild to moderate mitral annular calcification. Ordering Physician: Shirley Ortiz Referring Physician: Shirley Ortiz Performed By: Viji Bernardo, MEGAN, RVT 02/21/25 1537 Date _ Kris Duke MD CC: Dr. Shirley Ortiz MD ~ Date Dictated: 02/21/25 1255 Date Transcribed: 02/21/25 1537 Senior Receptionist: Signed [facility] Work Phone: Arterial study reportOrdered By: Paul Sheldon on 01-31-2025 Noninvasive arteriosclerosis study report [facility] Cardiovascular Services [address] [place] [address] Lower Ext Art Exam w/o Exercis 01/31/25 0937 MR#: [id number] Acct: [id number] Name: IVAN DE JESUS Rep #:[id number] : 1940 84 From: Paul Carr Attending Dr: Dr. Bienvenido Billings, DPM Status: REG CLI Ordering Dr: Bienvenido Billings DPM Date: 01/31/25 Location: [facility] Sex: F AA Admitted: Reason For Study Reason For Study: PVD Procedure A bilateral lower extremity continuous wave Doppler with analog waveform analysis,segmental pressures,and ankle brachial indexes without exercise. Left Segmental Pressures Left brachial= 141mmHg. Left posterior tibial artery = 137mmHg. Left dorsalis pedis artery = 142mmHg. Left digit = 81 mmHg. The left dorsalis pedis waveforms are biphasic. The left posterior tibial artery waveforms are triphasic. Right Segmental Pressures Right brachial= 139mmHg. Right posterior tibial artery = 141mmHg. Right dorsalispedis artery = 143mmHg. Right digit = 102 mmHg. The right dorsalis pedis waveforms are triphasic. The right posterior tibial artery waveforms are triphasic. Indices The right ankle brachial index by the dorsalis pedis is 1.01. The right ankle brachial index by the posterior tibial artery is 1.00. The right digital-brachial index is 0.72. The left ankle brachial index by the dorsalis pedis is 1.01. The left ankle brachial index by the posterior tibial artery is 0.97. The left digital-brachial index is 0.57. VL/Lower Ext Art Exam w/o Exercis Interpretation Summary Right ERICK 1.01, normal. Doppler/PVR waveforms of the right leg normal at rest. 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 Left ERICK 1.01, normal. Doppler/PVR waveforms of the left leg normal at rest. TBIdiminished, pedal/digit disease vs spasm. Ordering Physician: Bienvenido Billings Referring Physician: Shirley Ortiz Performed By: Eulalia Archuleta RVT 01/31/25 1542 Date _ Paul Sheldon MD CC: DPM Dr. Bienvenido Billings; Dr. Shirley Ortiz MD ~ Date Dictated: 01/31/25936 Date Transcribed: 01/31/25 1542 Senior Receptionist: Signed [facility] Work Phone: Lower Ext Art Exam w/o Exerc victorino 01-31-2025 Lower Ext Art Exam w/o Exercis [facility] [address] [place] [address] Lower Ext Art Exam w/o Exercis 01/31/25936 MR#: [id number] Acct: [id number] Name: IVAN DE JESUS Rep #: [id number] : 1940 84 From: Paul Sheldon MD Attending Dr: Dr. Bienvenido Billings DPM Status: R EG CLI Ordering Dr: Bienvenido Billings DPM Date: 01/31/25 [facility] Sex: F AA Admitted: Reason For Study Reason For Study: PVD Procedure A bilateral lower extremity continuous wave Doppler with analog waveform analysis,segmental pressures,and ankle brachial indexes without exercise. Left Segmental Pressures Left brachial= 141mmHg. Left posterior tibial artery = 137mmHg. Left dorsalis pedis artery = 142mmHg. Left digit = 81 mmHg. The left dorsalis pedis waveforms are biphasic. The left posterior tibial artery waveforms are triphasic. Right Segmental Pressures Right brachial= 139mmHg. Right posterior tibial artery = 141mmHg. Right dorsalis pedis artery = 143mmHg. Right digit = 102 mmHg. The right dorsalis pedis waveforms are triphasic. The right posterior tibial artery waveforms are triphasic. Indices The right ankle brachial index by the dorsalis pedis is 1.01. The right ankle brachial index by the posterior tibial artery is 1.00. The right digital-brachial index is 0.72. The left ankle brachial index by the dorsalis pedis is 1.01. The left ankle brachial index by the posterior tibial artery is 0.97. The left digital-brachial index is 0.57. VL/Lower Ext Art Exam w/o Exercis Interpretation Summary Right ERICK 1.01, normal. Doppler/PVR waveforms of the right leg normal at rest. 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 Left ERICK 1.01, normal. Doppler/PVR waveforms of the left leg normal at rest. 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 Ordering Physician: Bienvenido Billings Referring Physician: Shirley Ortiz Performed By: Eulalia Archuleta RVT 01/31/25 1542 Date Paul Sheldon MD CC: DPM Dr. Bienvenido Billings; Dr. Shirley Ortiz MD Date Dictated: 01/31/2537 Date Transcribed: 01/31/251541 Senior Receptionist: Signed Normal [facility] Venous Duplex US - Timo [facility] 01-31-2025 Venous Duplex US - Timo [facility] [address] [facility] [facility] [place] [address] Venous Duplex US - Timo [facility] 01/31/25 0946 MR#: [id number] Acct: [id number] Name: IVAN DE JESUS Rep #: [id number] : 1940 84 From: Paul Sheldon MD Attending Dr: Dr. Bienvenido Billings DPM Status: R EG CLI Ordering Dr: Bienevnido Billings DPM Date: 01/31/25 Location: [facility] Sex: F AA Admitted: Reason For Study Reason For Study: Pain RIGHT LEFT CFV is compressible, spontaneous, phasic, competent CFV is compressible, spontaneous, phasic, competent, and demonstrates normal augmentation. and demonstrates normal augmentation. FV is compressible, spontaneous, phasic, competent FV is compressible, spontaneous, phasic, competent and demonstrates normal augmentation. and demonstrates normal augmentation. POP V is compressible, spontaneous, phasic, competent POP V is compressible, spontaneous, phasic, competent and demonstrates normal augmentation. and demonstrates normal augmentation. T/P Trunk is compressible. T/P Trunk is compressible. PTV is compressible. PTV is compressible. RT PerV is compressible. LT PerV is compressible. SFJ is competent and measures 0.65 cm. SFJ is competent and measures 0.64 cm. GSV proximal thigh measures 0.42 x 0.42 cm. GSV proximal thigh measures 0.47 x 0.51 cm. GSV above knee is competent. GSV above knee is competent. GSV at knee measures 0.37 x 0.38 cm. GSV at knee measures 0.38 x 0.35 cm. GSV below knee is INCOMPETENT for greater than 0.5 GSV below knee is INCOMPETENT for greater than 0.5 seconds. seconds. SSV mid calf is competent and measures 0.31 x 0.32 SSV mid calf is competent and measures 0.31 x 0.33 cm. cm. Procedure This is a venous duplex using B-mode, color flow and spectral Doppler. Exam performed in department. Patient was scanned in reverse Trendelenburg position during reflux assessment. VL/Venous Duplex US - Timo Extrem Interpretation Summary Deep veins of the bilateral lower extremities are patent and compressible segmentally. There is no evidence of bilateral lower extremity deep vein thrombosis. The bilateral great saphenous veins appear patent and compressible segmentally. Positive for reflux in the right great saphenous vein below the knee. Positive for reflux in the left great saphenous vein below the knee. Ordering Physician: Bienvenido Billings Referring Physician: Shirley Ortiz Performed By: Eulalia Archuleta RVT 01/31/25 1540 Date Paul Sheldon MD CC: DPM Dr. Bienvenido Billings; Dr. Shirley Ortiz MD Date Dictated: 01/31/25945 Date Transcribed: 01/31/251539 Senior Receptionist: Signed Normal [facility] Venous duplex ultrasound rep ortOrdered By: Paul Sheldon on 01-31-2025 US Vein [facility] [address] [place] [address] Venous Duplex US - Timo Extrem 01/31/25945 MR#: [id number] Acct: [id number] Name: IVAN DE JESUS Rep #:[id number] : 1940 84 From: Paul Carr Attending Dr: Dr. Bienvenido Billings, DPM Status: REG CLI Ordering Dr: Bienvenido Billings DPM Date: 01/31/25 Location: [facility] Sex: F AA Admitted: Reason For Study Reason For Study: Pain RIGHT LEFT CFV is compressible, spontaneous, phasic, competent CFV is compressible, spontaneous, phasic, competent, and demonstrates normal augmentation. and demonstrates normal augmentation. FV is compressible, spontaneous, phasic, competent FV is compressible, spontaneous, phasic, competent and demonstrates normal augmentation. and demonstrates normal augmentation. POP V is compressible, spontaneous, phasic, competent POP V is compressible, spontaneous, phasic, competent and demonstrates normal augmentation. and demonstrates normal augmentation. T/P Trunk is compressible. T/P Trunk is compressible. PTV is compressible. PTV is compressible. RT PerV is compressible. LT PerV is compressible. SFJ is competent and measures 0.65 cm. SFJ is competent and measures 0.64 cm. GSV proximal thigh measures 0.42 x 0.42 cm. GSV proximal thigh measures 0.47 x 0.51 cm. GSV above knee is competent. GSV above kneeis competent. GSV at knee measures 0.37 x 0.38 cm. GSV at knee measures 0.38 x 0.35 cm. GSV below knee is INCOMPETENT for greater than 0.5 GSV below kneeis INCOMPETENT for greater than 0.5 seconds. seconds. SSV mid calf is competent and measures 0.31 x 0.32 SSV mid calf is competent and measures 0.31 x 0.33 cm. cm. Procedure This is a venous duplex using B-mode, color flow and spectral Doppler. Exam performed in department. Patient was scanned in reverse Trendelenburg position during reflux assessment. VL/Venous Duplex US - Timo Extrem Interpretation Summary Deep veins of the bilateral lower extremities are patent and compressible segmentally. There is no evidence of bilateral lower extremity deep vein thrombosis. The bilateral great saphenous veins appearpatent and compressible segmentally. Positive for reflux in the right great saphenous vein below the knee. Positive for reflux in the left great saphenous vein below the knee. Ordering Physician: Bienvenido Billings Referring Physician: Shirley Ortiz Performed By: Eulalia Archuleta Esthela 01/31/25 1540 Date _ Paul Sheldon MD CC: DPAlec Billings; Dr. Shirley Ortiz MD ~ Date Dictated: 01/31/25 0946 Date Transcribed: 01/31/251539 Senior Receptionist: Signed [facility] Work Phone: Laboratory - Hematology and Cell countsOrdered By: Shirley Ortiz on 01-23-2025 HbA1c (Bld) [Mass fraction] 7.8 % High 4.2-6.[address] [facility] Internal Medicine Office Vis iton 01-22-2025 Internal Medicine Office Visit [facility] [address] [place], [place] [address] OFFICE VISIT Date of Service: 01/23/25 MR#: [id number] Acct: [id number] Name: IVAN DE JESUS Rep #: [id number] : 1940 Provider: Dr. Shirley caraballo MD Age/Sex: 84/F Location: [facility] Status: Signed Intake Vital Signs 09/20/24 13:01 01/23/25 12:53 Height 5 ft 4 in 5 ft 4 in Weight: 197 lb BMI 33.7 BP 134/70 H Blood Pressure Location Lt brachial Position Sitting Respiration 18 Pulse 72 Pulse Source Monitor Temp 97.6 F L Temp Source Temporal Pulse Oximetry (%) 97 Oxygen Delivery Method room air Intake Visit Reasons: 4 M FU Chief Complaint: 4m f/u Is patient in pain?: No Allergies shellfish derived Allergy (Severe, Verified 01/23/25 12:47) Anaphylaxis chocolate flavor Allergy (Verified 01/23/25 12:47) Rash Medications ???Medication ???Instructions ???Recorded ???Confirmed ???Type multivitamin 1 tab PO DAILY 06/17/23 01/23/25 H istory aspirin 81 mg tablet,delayed 81 mg PO DAILY #90 tabs 05/16/24 0 01/23/25 Rx release atorvastatin 10 mg tablet 10 mg PO DAILY #90 tabs 09/20/24 0 01/23/25 Rx lisinopril 20 1 tab PO DAILY #90 tabs 09/20/24 0 01/23/25 Rx mg-hydrochlorothia zide 25 mg tablet metoprolol succinate 100 mg 100 mg PO DAILY #90 tabs 09/20/24 01/23/25 Rx tablet,extended release 24 hr calcium carbonate (Calcium 500) 600 mg PO DAILY 01/23/25 01/23/25 History metformin 500 mg tablet 500 mg PO BID #180 tabs 01/23/25 0 01/23/25 Rx Have you fallen in the past year?: No PFSH Medical History Vision problems Diabetes Hx of cataract Surgical History H/O skin graft Cataract extraction status Family History Aunt Asthma Uncle Alcoholism Mother Hypertension Aunt Breast cancer Uncle CVA (cerebral vascular accident) Social History household members: none current occupational status: retired current occupation: [employer] Smoking Status: Never smoker Electronic Cigarette Use: not used alcohol intake: never substance use type: does not use what type of physical activity do you participate in: none do you feel safe at home: Yes HPI HPI Chief Complaint: 4m f/u Details: IVAN DE JESUS, is a 84 F who presents to the office today for a follow up. She is up to date on her routine blood work. She thinks she is up to date on her screening. She previously declined a flu shot. She doesn't smoke and does not need refills. She reports she is trying to eat healthy. She reports she isn't walking as much as she was. She doesn't check her blood pressure at home regularly. She is taking her medication as prescribed without problems. She does try to monitor her salt intake. She doesn't check her sugars at home. She takes her metformin as prescribed without problems. She does try to monitor her carbohydrate and sugar intake. She is up to date on her eye exam. She does see podiatry and has some testing scheduled through them. She reports they also ordered her diabetic shoes which she is currently waiting on. She reports she did get her hearing aids, but hasn't found them to be helpful. She continues to have difficulty hearing people. She has no questions or concerns at this time. ROS Const Constitutional: Positive for weight change (12 pound weight gain); No body ache, chills, excessive sweating, fatigue, fever(s), frequent falls, headache(s), snoring, weakness, sleep problems, abnormal sleep pattern or change in appetite Eyes Eyes: No blurry vision, change in vision, eye pain or Light sensitivity ENT ENT: No abnormal hearing, ear or mastoid pain, tinnitus, nasal congestion, headache(s), neck pain or sore throat Resp Respiratory: No cough, shortness of breath, snoring or wheezing Cardio Cardiology: Positive for other (leg swelling); No chest pain at rest, chest pain with exertion, excessive sweating, shortness of breath, dyspnea on exertion, lightheadedness, orthopnea or palpitations Gastro GI: No abdominal pain, change in bowel habits, constipation, cramping, diarrhea, nausea/dyspepsia or vomiting Genitourinary-Fema le: No difficulty urinating, burning urination, painful urination, urinary incontinence, urinary frequency, abnormal vaginal bleeding or pelvic pain Musc Musculoskeletal: No abnormal gait, joint pain, back pain, limited range of motion, neck pain, numbness or tingling Skin Skin: No dry skin, redness, lesions, itchy eyes, rash or wounds Neuro Neurology: No abnormal gait, abnormal hearing, dizziness, weakness, frequent falls, headache(s), memory loss, numbness, tingling or fainting (more content not included)... Normal [facility] CBC W/Diff, Automatedon 10-2 Absolute Lymph 1.92 X10 3/uL Normal 0.83-4.[address] [facility] Comment on above: Performed By: #### L 500.4050, L100.0100, L500.4100, L502.0250 #### [facility] [address] [place], [address] Absolute Neut 3.9 X10 3/uL Normal 2.0-7.[address] [facility] Comment on above: Performed By: #### L 500.4050, L100.0100, L500.4100, L502.0250 #### [facility] [address] [place], [address] Basophils/100 WBC (Bld) 0.3 % Normal 0-1 [facility] Comment on above: Performed By: #### L 500.4050, L100.0100, L500.4100, L502.0250 #### [facility] [address] [place], [address] Eosinophils/100 WBC (Bld) 2.1 % Normal 0-[address] [facility] Comment on above: Performed By: #### L 500.4050, L100.0100, L500.4100, L502.0250 #### [facility] [address] [place], [address] Erythrocyte distribution width (RBC) [Ratio] 13.0 % Normal 11.6-14.[address] [facility] Comment on above: Performed By: #### L 500.4050, L100.0100, L500.4100, L502.0250 #### [facility] [address] [place], [address] Hematocrit (Bld) [Volume fraction] 38.6 % Normal 37-[address] [facility] Comment on above: Performed By: #### L 500.4050, L100.0100, L500.4100, L502.0250 #### [facility] [address] [place], [address] Hemoglobin (Bld) [Mass/Vol] 12.4 g/dL Normal 12.0-15.[address] [facility] Comment on above: Performed By: #### L 500.4050, L100.0100, L500.4100, L502.0250 #### [facility] [address] [place], [address] IG% 0.500 Normal 0.0-0.[address] [facility] Comment on above: Result Comment: IG% - Immature Granulocytes (promyelocytes, myelocytes and metamyelocytes) > 1% indicates that a LEFT SHIFT is Present. Performed By: #### L 500.4050, L100.0100, L500.4100, L502.0250 #### [facility] [address] [place], [address] Lymphocytes/100 WBC (Bld) 28.9 % Normal 19-[address] [facility] Comment on above: Performed By: #### L 500.4050, L100.0100, L500.4100, L502.0250 #### [facility] [address] [place], [address] MCH (RBC) [Entitic mass] 32.5 pg High 27.0-32.[address] [facility] Comment on above: Performed By: #### L 500.4050, L100.0100, L500.4100, L502.0250 #### [facility] [address] [place], [address] MCHC (RBC) [Mass/Vol] 32.1 g/dL Normal 32-36 [facility] Comment on above: Performed By: #### L 500.4050, L100.0100, L500.4100, L502.0250 #### [facility] [address] [place], [address] MCV (RBC) [Entitic vol] 101.0 fL High 81-99 [facility] Comment on above: Performed By: #### L 500.4050, L100.0100, L500.4100, L502.0250 #### [facility] [address] [place], [address] Monocytes/100 WBC (Bld) 9.8 % Normal 0-10 [facility] Comment on above: Performed By: #### L 500.4050, L100.0100, L500.4100, L502.0250 #### [facility] [address] [place], [address] Neutrophils/100 WBC (Bld) 58.4 % Normal 47-[address] [facility] Comment on above: Performed By: #### L 500.4050, L100.0100, L500.4100, L502.0250 #### [facility] [address] [place], [address] Nucleated RBC (Bld) [#/Vol] 0 10*3/uL Normal 0-[address] [facility] Comment on above: Performed By: #### L 500.4050, L100.0100, L500.4100, L502.0250 #### [facility] [address] [place], [address] Platelet mean volume (Bld) [Entitic vol] 11.8 fL Normal 6.2-12.[address] [facility] Comment on above: Performed By: #### L 500.4050, L100.0100, L500.4100, L502.0250 #### [facility] [address] [place], [address] Platelets (Bld) [#/Vol] 170 10*3/uL Normal 150-[address] [facility] Comment on above: Performed By: #### L 500.4050, L100.0100, L500.4100, L502.0250 #### [facility] [address] [place], [address] RBC (Bld) [#/Vol] 3.82 10*6/uL Low 4.2-5.[address] [facility] Comment on above: Performed By: #### L 500.4050, L100.0100, L500.4100, L502.0250 #### [facility] [address] [place], [address] RDW SD 48.3 fl High 35.1-43.[address] [facility] Comment on above: Performed By: #### L 500.4050, L100.0100, L500.4100, L502.0250 #### [facility] [address] [place], [address] WBC (Bld) [#/Vol] 6.6 10*3/uL Normal 4.4-11.0 [facility] Comment on above: Performed By: #### L 500.4050, L100.0100, L500.4100, L502.0250 #### [facility] [address] [place], [address] Comprehensive Metabolic Prof ilon 09-20-2024 Albumin [Mass/Vol] 3.1 g/dL Low 3.2-5.0 [facility] Comment on above: Performed By: #### L 500.4050, L100.0100, L500.4100, L502.0250 #### [facility] [address] [place], [address] Albumin/Globulin [Mass ratio] 0.8 {ratio} Low 0.9-2.[address] [facility] Comment on above: Performed By: #### L 500.4050, L100.0100, L500.4100, L502.0250 #### [facility] [address] [place], [address] ALK P 85 U/L Normal 45-[address] [facility] Comment on above: Performed By: #### L 500.4050, L100.0100, L500.4100, L502.0250 #### [facility] [address] [place], [address] ALT [Catalytic activity/Vol] 33 U/L Normal 13-[address] [facility] Comment on above: Performed By: #### L 500.4050, L100.0100, L500.4100, L502.0250 #### [facility] [address] [place], [address] AST [Catalytic activity/Vol] 18 U/L Normal 15-[address] [facility] Comment on above: Performed By: #### L 500.4050, L100.0100, L500.4100, L502.0250 #### [facility] [address] [place], [address] Bilirubin [Mass/Vol] 0.70 mg/dL Normal 0.20-1.00 [facility] Comment on above: Result Comment: For patients on eltrombopag therapy, use of Dimension [place] TBIL is not recommended. Performed By: #### L 500.4050, L100.0100, L500.4100, L502.0250 #### [facility] [address] [place], [address] BUN/CRE 28.4 RATIO High 10-[address] [facility] Comment on above: Performed By: #### L 500.4050, L100.0100, L500.4100, L502.0250 #### [facility] [address] [place], [address] CA,Total 9.5 mg/dL Normal 8.5-10.[address] [facility] Comment on above: Performed By: #### L 500.4050, L100.0100, L500.4100, L502.0250 #### [facility] [address] [place], [address] Chloride [Moles/Vol] 107 mmol/L Normal 98-107 [facility] Comment on above: Performed By: #### L 500.4050, L100.0100, L500.4100, L502.0250 #### [facility] [address] [place], [address] CO2 [Moles/Vol] 29.0 mmol/L Normal 21.0-32.[address] [facility] Comment on above: Performed By: #### L 500.4050, L100.0100, L500.4100, L502.0250 #### [facility] [address] [place], [address] Creatinine [Mass/Vol] 1.02 mg/dL Normal 0.55-1.02 [facility] Comment on above: Result Comment: The validity of the calculated GFR GFRAA in patients over 70 years has not been determined. Clinical correlation is essential. Performed By: #### L 500.4050, L100.0100, L500.4100, L502.0250 #### [facility] [address] [place], [address] EST GFR - AA 67 mL/min Normal >[address] [facility] Comment on above: Result Comment: Afri can Ivorian GFR Calc Performed By: #### L 500.4050, L100.0100, L500.4100, L502.0250 #### [facility] [address] [place], [address] GAP 4 Low 5-[address] [facility] Comment on above: Performed By: #### L 500.4050, L100.0100, L500.4100, L502.0250 #### [facility] [address] [place], [address] GFR/1.73 sq M.predicted among non-blacks MDRD (S/P/Bld) [Vol rate/Area] 55 mL/min/{1.73_m2} Low >[address] [facility] Comment on above: Result Comment: Non- GFR Calc Performed By: #### L 500.4050, L100.0100, L500.4100, L502.0250 #### [facility] [address] [place], [address] Globulin (S) [Mass/Vol] 4.1 g/dL Normal 2.2-4.2 [facility] Comment on above: Performed By: #### L 500.4050, L100.0100, L500.4100, L502.0250 #### [facility] [address] [place], [address] Glucose [Mass/Vol] 177 mg/dL High 74-106 [facility] Comment on above: Result Comment: Fast ing Glucose result greater than or equal to 126 mg/dL suggests DIABETES MELLITUS per A.D.A. criteria. Performed By: #### L 500.4050, L100.0100, L500.4100, L502.0250 #### [facility] [address] [place], [address] Potassium [Moles/Vol] 3.7 mmol/L Normal 3.5-5.1 [facility] Comment on above: Performed By: #### L 500.4050, L100.0100, L500.4100, L502.0250 #### [facility] [address] [place], [address] Sodium [Moles/Vol] 140 mmol/L Normal 136-145 [facility] Comment on above: Performed By: #### L 500.4050, L100.0100, L500.4100, L502.0250 #### [facility] [address] [place], [address] T PROT 7.2 g/dL Normal 6.4-8.[address] [facility] Comment on above: Performed By: #### L 500.4050, L100.0100, L500.4100, L502.0250 #### [facility] [address] [place], [address] Urea nitrogen [Mass/Vol] 29 mg/dL High -[address] [facility] Comment on above: Performed By: #### L 500.4050, L100.0100, L500.4100, L502.0250 #### [facility] [address] [place], [address] Lipid Profileon 09-20-2024 Cholesterol [Mass/Vol] 150 mg/dL Normal 200 [facility] Comment on above: Result Comment: <200 mg/dL Desirable 200-240 mg/dL Borderline >240 mg/dL High Risk Performed By: #### L 500.4050, L100.0100, L500.4100, L502.0250 #### [facility] [address] [place], [address] Cholesterol in HDL [Mass/Vol] 59 mg/dL Normal [facility] Comment on above: Result Comment: The drugs N-Acetylcysteine and Metamizole may falsely depress this assay. Reference Range HDL <40 mg/dL Low HDL Cholesterol HDL >or= 60 mg/dL High HDL Cholesterol Performed By: #### L 500.4050, L100.0100, L500.4100, L502.0250 #### [facility] [facility] [address] [place], [address] Cholesterol in LDL [Mass/Vol] 65 mg/dL Normal 0-[address] [facility] Comment on above: Performed By: #### L 500.4050, L100.0100, L500.4100, L502.0250 #### [facility] [address] [place], [address] Cholesterol in VLDL [Mass/Vol] 26 mg/dL Normal 5-[address] [facility] Comment on above: Performed By: #### L 500.4050, L100.0100, L500.4100, L502.0250 #### [facility] [address] [place], [address] Triglyceride [Mass/Vol] 131 mg/dL Normal [facility] Comment on above: Result Comment: The drugs N-Acetylcysteine and Metamizole may falsely depress this assay. Serum Triglycerides Reference Interval Normal <150 mg/dL Borderline high 150 - 199 mg/dL High 200 - 499 mg/dL Very High > or = 500 mg/dL Performed By: #### L 500.4050, L100.0100, L500.4100, L502.0250 #### [facility] [address] [place], [address] Microalb:Creat Ratio,Random URon 09-20-2024 Creatinine [Mass/Vol] 78.30 mg/dL Normal NO RANGE EST. [facility] Comment on above: Performed By: #### L 500.4050, L100.0100, L500.4100, L502.0250 #### [facility] [address] [place], [address] MALB:CRE 95.5 mg/g CRE High <30 mg/g CRE [facility] Comment on above: Performed By: #### L 500.4050, L100.0100, L500.4100, L502.0250 #### [facility] [address] [place], [address] MICROALBUMIN,UR 74.8 mg/L Normal NO RANGE EST. [facility] Comment on above: Performed By: #### L 500.4050, L100.0100, L500.4100, L502.0250 #### [facility] [address] [place], [address] Internal Medicine Office Vis itosvitlana 09-19-2024 Internal Medicine Office Visit [facility] [address] [place], [place] [address] OFFICE VISIT Date of Service: 09/20/24 MR#: [id number] Acct: [id number] Name: IVAN DE JESUS Rep #: [id number] : 1940 Provider: Dr. Shirley caraballo MD Age/Sex: 83/F Location: [facility] Status: Signed Intake Vital Signs 05/25/24 12:59 07/05/24 13:06 09/20/24 13:01 Height 5 ft 4 in 5 ft 4 in 5 ft 4 in Weight: 185 lb BMI 31.7 BP 138/72 H Blood Pressure Location Lt brachial Position Sitting Respiration 16 Pulse 66 Pulse Source Monitor Temp 97.7 F L Temp Source Temporal Pulse Oximetry (%) 97 Oxygen Delivery Method room air Intake Visit Reasons: 4 M FU Chief Complaint: 4m f/u [employer] Inter[employer]ter Required: No Accompanied by: Self Is patient in pain?: No Allergies shellfish derived Allergy (Severe, Verified 09/20/24 12:53) Anaphylaxis chocolate flavor Allergy (Verified 09/20/24 12:53) Rash Medications ???Medication ???Instructions ???Recorded ???Confirmed ???Type calcium carbonate (Calcium 500) 500 mg PO DAILY 06/17/23 09/20/24 History multivitamin 1 tab PO DAILY 06/17/23 09/20/24 History aspirin 81 mg tablet,delayed 81 mg PO DAILY #90 tabs 05/16/24 09/20/24 Rx release atorvastatin 10 mg tablet 10 mg PO DAILY #90 tabs 09/20/24 09/20/24 Rx lisinopril 20 1 tab PO DAILY #90 tabs 09/20/24 09/20/24 Rx mg-hydrochlorothia zide 25 mg tablet metformin 500 mg tablet 500 mg PO DAILY #90 tabs 09/20/24 09/20/24 Rx metoprolol succinate 100 mg 100 mg PO DAILY #90 tabs 09/20/24 09/20/24 Rx tablet,extended release 24 hr Have you fallen in the past year?: No PFSH Medical History Vision problems Diabetes Hx of cataract Surgical History H/O skin graft Cataract extraction status Family History Aunt Asthma Uncle Alcoholism Mother Hypertension Aunt Breast cancer Uncle CVA (cerebral vascular accident) Social History household members: none current occupational status: retired current occupation: [employer] Smoking Status: Never smoker Electronic Cigarette Use: not used alcohol intake: never substance use type: does not use what type of physical activity do you participate in: none do you feel safe at home: Yes HPI HPI Chief Complaint: 4m f/u Details: IVAN DE JESUS is a 83 F who presents to the office today for a follow up. She is due for some routine blood work. She thinks she is up to date on her screening. She doesn't want a flu shot. She doesn't smoke and does need refills. She reports she is trying to eat healthy. She reports she isn't walking as much as she was. She doesn't check her blood pressure at home regularly. She is taking her medication as prescribed without problems. She does try to monitor her salt intake. She doesn't check her sugars at home. She takes her metformin as prescribed without problems. She does try to monitor her carbohydrate and sugar intake. She is up to date on her eye exam and doesn't see a cloth burler. The patient saw ENT for her cerumen impaction. She reports it was flushed. She later went to the ED with persistent symptoms. Her ears were flushed again and there was some tissue which was also removed. She was sent home with debrox and felt that has been helpful. She is waiting to hear about getting new hearing aids. She has no questions or concerns at this time. ROS Const Constitutional: Positive for weight change (5 pound weight gain); No body ache, chills, excessive sweating, fatigue, fever(s), frequent falls, headache(s), snoring, weakness or change in appetite Eyes Eyes: No blurry vision, change in vision, eye pain or Light sensitivity ENT ENT: Positive for abnormal hearing and hearing loss; No ear or mastoid pain, tinnitus, nasal congestion, headache(s), neck pain or sore throat Resp Respiratory: No cough, shortness of breath, snoring or wheezing Cardio Cardiology: Positive for other (leg swelling); No chest pain at rest, chest pain with exertion, excessive sweating, dyspnea on exertion, lightheadedness, orthopnea or palpitations Gastro GI: No abdominal pain, change in bowel habits, constipation, cramping, diarrhea, nausea/dyspepsia or vomiting Genitourinary-Fema le: No difficulty urinating, burning urination, painful urination, urinary incontinence or urinary frequency Musc Musculoskeletal: No abnormal gait, joint pain, back pain, limited range of motion, muscle weakness, neck pain, numbness or tingling Skin Skin: No dry skin, redness, lesions, itchy eyes, rash or wounds Neuro Neurology: Positive for abnormal hearing; No abnormal gait, dizziness, weakness, frequent falls, (more content not included)... Normal [facility] Emergency Department Summary on 07-05-2024 Emergency Department Summary [facility] Medical Records Department [address] [place] [address] Emergency Department Summary 07/05/24 MR#: [id number] Acct: [id number] Name: IVAN DE JESUS Rep #: [id number] : 1940 83 From: Obinna Lind MD PCP: Dr. Shirley Ortiz MD Status:REG ER Location: ED HPI History of Present Illness Chief Complaint: Ear Problem Narrative Narrative: 83-year-old female who is already hard of hearing presents with the feeling that her right ear is blocked up, and she is having a hard time hearing out of that ear. She relates history that she went to her primary care provider a few weeks ago, and had her ear irrigated which she thinks made it worse. She denies any fevers or chills, no other problems. PFSH PFS Medical History Vision problems Diabetes Hx of cataract Home Medications ???Medication ???Instructions ???Recorded ???Last Taken ???Type calcium carbonate (Calcium 500) 500 mg PO DAILY 06/17/23 Unknown History multivitamin 1 tab PO DAILY 06/17/23 Unknown History aspirin 81 mg tablet,delayed 81 mg PO DAILY #90 tabs 05/16/24 Unknown Rx release atorvastatin 10 mg tablet 10 mg PO DAILY #90 tabs 05/16/24 Unknown Rx lisinopril 20 1 tab PO DAILY #90 tabs 05/16/24 Unknown Rx mg-hydrochlorothia zide 25 mg tablet metformin 500 mg tablet 500 mg PO DAILY #90 tabs 05/16/24 Unknown Rx metoprolol succinate 100 mg 100 mg PO DAILY #90 tabs 05/16/24 Unknown Rx tablet,extended release 24 hr Allergy/AdvReac Type Severity Reaction Status Date / Time shellfish derived Allergy Severe Anaphylaxis Verified 07/05/24 13:06 chocolate flavor Allergy Rash Verified 07/05/24 13:06 Family History Aunt Asthma Uncle Alcoholism Mother Hypertension Aunt Breast cancer Uncle CVA (cerebral vascular accident) Surgical History H/O skin graft Cataract extraction status Social History household members: none current occupational status: retired current occupation: [employer] Smoking Status: Never smoker Electronic Cigarette Use: not used alcohol intake: never substance use type: does not use what type of physical activity do you participate in: none do you feel safe at home: Yes ROS ROS ED ROS Narrative Constitutional: No fever, no chills. HEENT: No sore throat. No neck pain. No loss of vision. No rhinorrhea. Loss of hearing out of right ear, feels blocked up or plugged. No complaints with the left ear. Cardiovascular: No chest pain. No palpitations. No pedal edema. Respiratory: No cough, no shortness of breath. Abdominal: No abdominal pain. No nausea. No vomiting. Genitourinary: No dysuria. No hematuria. Musculoskeletal: No myalgias. No arthralgias. Neurologic: No headaches. No dizziness. No lightheadedness. Skin: No rash. No change in color. Psychiatric: No depression. No anxiety. EXAM Physical Exam Narrative Exam Narrative: Afebrile. Vital signs noted. Nontoxic-appearing . Regular rate and rhythm. Lungs clear to auscultation bilaterally. Abdomen soft nontender with normal active bowel sounds. Neurological examination nonfocal and nonlateralizing. No mastoid tenderness or erythema bilaterally. No pain with movement of auricle or tragus bilaterally. There is cerumen impaction on the right. TM is clear on the left with only a small amount of cerumen in the ear canal. Const Vital Signs: 07/05/24 13:06 Temperature 98.3 F Temperature Source Temporal Pulse Rate 76 Respiratory Rate 18 Blood Pressure 159/97 H Blood Pressure Mean 117 Pulse Ox 99 Oxygen Delivery Method Room Air MDM MDM MDM Narrative Medical decision making narrative: Differential diagnosis not applicable. Given her cerumen impaction on the right, Debrox will be instilled and attempt will be made to irrigate the right ear. Should this be unsuccessful, she will be referred to an ENT for follow-up for cerumen impaction. After Debrox and irrigation, a call to the room for reevaluation. TM is now visualized. There was maybe a small piece of tissue and the cerumen may have had a bit of a blood clot in it as well. As the TM is now visualized, I feel she can be discharged to follow-up. Disposition is discharged in stable condition. Discharge Plan Triage Chief Complaint: Ear Problem ED Provider: Obinna Lind Dx/Rx/DC Orders Clinical Impression: Impacted cerumen of right ear, Hard of hearing Instructions: ED Cerumen Impaction Treated Prescriptions: No Action multivitamin Tablet 1 tab PO DAILY calcium carbonate [Calcium 500] 500 mg calcium (1,250 mg) tablet,chewable 500 mg PO DAILY metoprolol succinate 100 mg ta (more content not included)... Normal [facility] Internal Medicine Office Vis cara 05-24-2024 Internal Medicine Office Visit [facility] [address] [place] [address] [place] [address] OFFICE VISIT Date of Service: 05/25/24 MR#: [id number] Acct: [id number] Name: IVAN DE JESUS Rep #: [id number] : 1940 Provider: Dr. Shirley caraballo MD Age/Sex: 83/F Location: [facility] Status: Signed Intake Vital Signs 01/25/24 12:51 05/25/24 12:59 Height 5 ft 4 in 5 ft 4 in Weight: 180 lb BMI 30.9 BP 124/72 H Blood Pressure Location Lt brachial Position Sitting Respiration 16 Pulse 76 Pulse Source Monitor Temp 97.4 F L Temp Source Temporal Pulse Oximetry (%) 99 Oxygen Delivery Method room air Intake Visit Reasons: 4 M FU Chief Complaint: f/u [employer] Inter[employer]ter Required: No Is patient in pain?: No Allergies shellfish derived Allergy (Severe, Verified 05/25/24 12:50) Anaphylaxis chocolate flavor Allergy (Verified 05/25/24 12:50) Rash Medications ???Medication ???Instructions ???Recorded ???Confirmed ???Type calcium carbonate (Calcium 500) 500 mg PO DAILY 06/17/23 05/25/24 History multivitamin 1 tab PO DAILY 06/17/23 05/25/24 History aspirin 81 mg tablet,delayed 81 mg PO DAILY #90 tabs 05/16/24 05/25/24 Rx release atorvastatin 10 mg tablet 10 mg PO DAILY #90 tabs 05/16/24 05/25/24 Rx lisinopril 20 1 tab PO DAILY #90 tabs 05/16/24 05/25/24 Rx mg-hydrochlorothia zide 25 mg tablet metformin 500 mg tablet 500 mg PO DAILY #90 tabs 05/16/24 05/25/24 Rx metoprolol succinate 100 mg 100 mg PO DAILY #90 tabs 05/16/24 05/25/24 Rx tablet,extended release 24 hr Have you fallen in the past year?: No Nurse's Note: States ears are plugged, is having difficulty hearing, not sure how to clean them. [facility] Medical History Vision problems Diabetes Hx of cataract Surgical History H/O skin graft Cataract extraction status Family History Aunt Asthma Uncle Alcoholism Mother Hypertension Aunt Breast cancer Uncle CVA (cerebral vascular accident) Social History household members: none current occupational status: retired current occupation: [employer] Smoking Status: Never smoker Electronic Cigarette Use: not used alcohol intake: never substance use type: does not use what type of physical activity do you participate in: none do you feel safe at home: Yes HPI HPI Chief Complaint: f/u Details: IVAN DE JESUS, is a 83 F who presents to the office today for a follow up. She is up to date on her routine blood work. She thinks she is up to date on her screening. She isn't due for any immunizations. She doesn't smoke and does not need refills. She reports she is trying to eat healthy. She is also staying active around her house. She doesn't check her blood pressure at home regularly. She is taking her medication as prescribed without problems. She does try to monitor her salt intake. She doesn't check her sugars at home. She takes her metformin as prescribed without problems. She does try to monitor her carbohydrate and sugar intake. She has her eye exam scheduled for next month and doesn't see a cloth burler. The patient has concerns about her ears. She reports it feels like they are plugged up, right more than left. She reports it started about a month ago. She reports her son tried cleaning her ears out. She reports she is having increasing trouble hearing. She does wear hearing aids, but doesn't find it is helping much. She states they are about 2 years old. She hasn't noticed any pain or drainage from her ears at all. She has no questions or concerns at this time. ROS Const Constitutional: No body ache, chills, excessive sweating, fatigue, fever(s), frequent falls, headache(s), snoring, weakness, weight change, sleep problems or change in appetite Eyes Eyes: Positive for change in vision; No blurry vision, eye pain or Light sensitivity ENT ENT: Positive for abnormal hearing and hearing loss; No ear or mastoid pain, ear discharge, tinnitus, nasal congestion, headache(s), neck pain or sore throat Resp Respiratory: No cough, shortness of breath, snoring or wheezing Cardio Cardiology: Positive for other (leg swelling, chronic); No chest pain at rest, chest pain with exertion, excessive sweating, shortness of breath, dyspnea on exertion, lightheadedness, orthopnea or palpitations Gastro GI: Positive for constipation (occasional); No abdominal pain, change in bowel habits, cramping, diarrhea, nausea/dyspepsia or vomiting Genitourinary-Fema le: No difficulty urinating, burning urination, painful urination, urinary incontinence, urinary frequency, abnormal vaginal bleeding or pelvic pain Musc Musculoskeletal (more content not included)... Normal [facility] Basophil percentageOrdered B y: Shirley Ortiz on 01-25-2024 Chloride [Moles/Vol] 107 mmol/L 98-107 [facility] Glucose [Mass/Vol] 153 mg/dL 74-106 [facility] Comment on above: Fasting Glucose resu lt greater than or equal to 126 mg/dL suggests DIABETES MELLITUS per A.D.A. criteria. Potassium [Moles/Vol] 4.0 mmol/L 3.5-5.1 [facility] Sodium [Moles/Vol] 143 mmol/L 136-145 [facility] - Chemistry and C hemistry - challengeOrdered By: Shirley Ortiz on 01-25-2024 CO2 [Moles/Vol] 32.0 mmol/L 21.0-32.[address] [facility] Urea nitrogen/Creatinine [Mass ratio] 33.7 mg/mg 10-[address] [facility] - Hematology and Cell countson 01-25-2024 HbA1c (Bld) [Mass fraction] 6.0 % 4.2-6.[address] [facility] No Panel InformationOrdered By: Shirley Ortiz on 01-25-2024 Estimated GFR (MDRD) Amer 68 mL/min >[address] [facility] Comment on above: GFR Calc Estimated GFR (MDRD) Non-Af Amer 56 mL/min >[address] [facility] Comment on above: Non- GFR Calc Serum or plasma calcium eugenio urement (mass/volume)Ordered By: Shirley Ortiz on 01-25-2024 Calcium [Mass/Vol] 10.0 mg/dL 8.5-10.1 [facility] Serum or plasma creatinine m easurement (mass/volume)Ordered By: Shirley Otriz on 01-25-2024 Creatinine [Mass/Vol] 1.01 mg/dL 0.55-1.02 [facility] Comment on above: The validity of the calculated GFR & GFRAA in patients over 70 years has not been determined. Clinical correlation is essential. Serum or plasma urea nitroge n measurement (mass/volume)Ordered By: Shirley Ortiz on 01-25-2024 Urea nitrogen [Mass/Vol] 34 mg/dL 7-[address] [facility] Thin prep Papanicolaou smear with manual screeningOrdered By: Shirley Ortiz on 01-25-2024 Thin prep Papanicolaou smear with manual screening 4 5-[address] [facility] Absolute lymphocyte countOrd ered By: Shirley Ortiz on 09-16-2023 Lymphocytes Auto (Unsp spec) [#/Vol] 2.10 10*3/uL 0.83-4.[address] [facility] Basophil percentageOrdered B y: Shirley Ortiz on 09-16-2023 Basophils/100 WBC (Bld) 0.3 % 0-1 [facility] Bilirubin [Mass/Vol] 0.70 mg/dL 0.20-1.00 [facility] Comment on above: For patients on eltr ombopag therapy, use of Dimension [place] TBIL is not recommended. Chloride [Moles/Vol] 105 mmol/L 98-107 [facility] Cholesterol [Mass/Vol] 143 mg/dL <200 [facility] Comment on above: <200 mg/dL Desirable 200-240 mg/dL Borderline >240 mg/dL High Risk Eosinophils/100 WBC (Bld) 2.3 % 0-[address] [facility] Glucose [Mass/Vol] 221 mg/dL 74-106 [facility] Comment on above: Glucose result great er than or equal to 200 mg/dLsuggests DIABETES MELLITUS per A.D.A. criteria. Neutrophils (Bld) [#/Vol] 4.4 10*3/uL 2.0-7.[address] [facility] Neutrophils/100 WBC (Bld) 59.2 % 47-[address] [facility] Potassium [Moles/Vol] 3.8 mmol/L 3.5-5.1 [facility] Protein [Mass/Vol] 7.5 g/dL 6.4-8.2 [facility] Sodium [Moles/Vol] 140 mmol/L 136-145 [facility] Triglyceride [Mass/Vol] 188 mg/dL <199 [facility] Comment on above: The drugs N-Acetylcy steine and Metamizole may falsely depress this assay.Serum Triglycerides Reference Interval Normal <150 mg/dL Borderline high 150 - 199 mg/dL High 200 - 499 mg/dL Very High > or = 500 mg/dL WBC (Bld) [#/Vol] 7.4 10*3/uL 4.4-11.0 [facility] Blood erythrocytes count (nu mber/volume)Ordered By: Shirley Ortiz on 09-16-2023 RBC (Bld) [#/Vol] 3.91 10*6/uL 4.2-5.[address] [facility] Blood hemoglobin measurement (mass/volume)Ordered By: Shirley Ortiz on 09-16-2023 Hemoglobin (Bld) [Mass/Vol] 12.9 g/dL 12.0-15.[address] [facility] Blood lymphocytes/100 leukoc ytesOrdered By: Shirley Ortiz on 09-16-2023 Lymphocytes/100 WBC (Bld) 28.4 % 19-[address] [facility] Blood monocytes/100 leukocyt esOrdered By: Shirley Ortiz on 09-16-2023 Monocytes/100 WBC (Bld) 9.5 % 0-10 [facility] Blood platelet mean volumeOr dered By: Shirley Ortiz on 09-16-2023 Platelet mean volume (Bld) [Entitic vol] 12.2 fL 6.2-12.[address] [facility] Determination of erythrocyte mean corpuscular volume (MCV)Ordered By: Shirley Ortiz on 09-16-2023 MCV (RBC) [Entitic vol] 102.3 fL 81-99 [facility] Hematocrit Auto (Bld) [Volum e fraction]Ordered By: Shirley Ortiz on 09-16-2023 Hematocrit (Bld) [Volume fraction] 40.0 % 37-[address] [facility] - Chemistry and C hemistry - challengeOrdered By: Shirley Ortiz on 09-16-2023 Cobalamin (Vitamin B12) [Mass/Vol] 731 pg/mL 211-[address] [facility] ALP [Catalytic activity/Vol] 94 U/L 45-[address] [facility] ALT [Catalytic activity/Vol] 32 U/L 13-[address] [facility] CO2 [Moles/Vol] 28.0 mmol/L 21.0-32.[address] [facility] Globulin (S) [Mass/Vol] 4.3 g/dL 2.2-4.2 [facility] Urea nitrogen/Creatinine [Mass ratio] 31.1 mg/mg 10-[address] [facility] - Hematology and Cell countson 09-16-2023 HbA1c (Bld) [Mass fraction] 6.5 % [facility] - Hematology and Cell countsOrdered By: Shirley Ortiz on 09-16-2023 Erythrocyte distribution width (RBC) [Entitic vol] 49.1 fL 35.1-43.[address] [facility] Erythrocyte distribution width (RBC) [Ratio] 13.1 % 11.6-14.[address] [facility] Immature granulocytes/100 WBC (Bld) 0.300 % 0.0-0.[address] [facility] Comment on above: IG% - Immature Granu locytes (promyelocytes, myelocytes and metamyelocytes) > 1% indicates that a LEFT SHIFT is Present. MCH (RBC) [Entitic mass] 33.0 pg 27.0-32.[address] [facility] Nucleated RBC/100 WBC (Bld) [Ratio] 0 % 0-[address] [facility] MCHC Auto (RBC) [Mass/Vol]Or dered By: Shirley Ortiz on 10-18-2023 MCHC (RBC) [Mass/Vol] 32.3 g/dL 32-36 [facility] No Panel InformationOrdered By: Shirley Ortiz on 09-16-2023 Urine Microalbumin/Creatinine Ratio 66.4 mg/g CRE <[address] [facility] Estimated GFR (MDRD) Amer 66 mL/min >[address] [facility] Comment on above: GFR Calc Estimated GFR (MDRD) Non-Af Amer 55 mL/min >[address] [facility] Comment on above: Non- GFR Calc Platelets bldOrdered By: Josh Ortiz on 09-16-2023 Platelets (Bld) [#/Vol] 196 10*3/uL 150-[address] [facility] Serum or plasma albumin eugenio urement (mass/volume)Ordered By: Shirley Ortiz on 09-16-2023 Albumin [Mass/Vol] 3.2 g/dL 3.2-5.0 [facility] Serum or plasma albumin/glob ulin mass ratioOrdered By: Shirley Ortiz on 09-16-2023 Albumin/Globulin [Mass ratio] 0.7 {ratio} 0.9-2.[address] [facility] Serum or plasma calcium eugenio urement (mass/volume)Ordered By: Shirley Ortiz on 09-16-2023 Calcium [Mass/Vol] 9.8 mg/dL 8.5-10.1 [facility] Serum or plasma cholesterol in HDL measurement (mass/volume)Ordered By: Shirley Ortiz on 09-16-2023 Cholesterol in HDL [Mass/Vol] 54 mg/dL >[address] [facility] Comment on above: The drugs N-Acetylcy steine and Metamizole may falsely depress this assay. Reference Range HDL <40 mg/dL Low HDL Cholesterol HDL >or= 60 mg/dL High HDL Cholesterol Serum or plasma cholesterol in VLDL measurement (mass/volume)Ordered By: Shirley Ortiz on 09-16-2023 Cholesterol in VLDL [Mass/Vol] 38 mg/dL 5-[address] [facility] Serum or plasma creatinine m easurement (mass/volume)Ordered By: Shirley Ortiz on 09-16-2023 Creatinine [Mass/Vol] 1.03 mg/dL 0.55-1.02 [facility] Comment on above: The validity of the calculated GFR & GFRAA in patients over 70 years has not been determined. Clinical correlation is essential. Serum or plasma folate measu rement (mass/volume)Ordered By: Shirley Ortiz on 09-16-2023 Folate [Mass/Vol] 34.00 ng/mL 3.1-55.4 [facility] Serum or plasma low density lipoprotein (LDL) cholesterol measurement (mass/volume)Ordered By: Shirley Ortiz on 09-16-2023 Cholesterol in LDL [Mass/Vol] 51 mg/dL 0-[address] [facility] Serum or plasma urea nitroge n measurement (mass/volume)Ordered By: Shirley Ortiz on 09-16-2023 Urea nitrogen [Mass/Vol] 32 mg/dL -[address] [facility] Thin prep Papanicolaou smear with manual screeningOrdered By: Shirley Ortiz on 09-16-2023 Thin prep Papanicolaou smear with manual screening 60.5 mg/L NO RANGE EST. [facility] Thin prep Papanicolaou smear with manual screening 22 U/L 15-[address] [facility] Thin prep Papanicolaou smear with manual screening 7 5-[address] [facility] Urine creatinine measurement (mass/volume)Ordered By: Shirley Ortiz on 09-16-2023 Creatinine (U) [Mass/Vol] 91.10 mg/dL NO RANGE EST. [facility] Laboratory - Hematology and Cell countson 06-17-2023 HbA1c (Bld) [Mass fraction] 5.7 % 4.2-6.[address] [facility] Vital Signs Date Time Vital Sign Value Performing Clinician Sunnyi gary 05-09-2025 13:29-0400 Body height 167.[address] Shirley Ortiz MD Work Phone: [facility] 05-09-2025 13:29-0400 Body mass index (BMI) [Ratio] 31.3 kg/m2 Dr. Shirley Ortiz MD Work Phone: [facility] 05-09-2025 13:29-0400 Body temperature 97.1 [degF] Dr. Shirley Ortiz MD Work Phone: [facility] 05-09-2025 13:29-0400 Body weight 87.[address] Shirley Ortiz MD Work Phone: [facility] 05-09-2025 13:29-0400 Diastolic blood pressure 64 mm[Hg] Dr. Shirley Ortiz MD Work Phone: [facility] 05-09-2025 13:29-0400 Heart rate 74 /min Dr. Shirley Ortiz MD Work Phone: [facility] 05-09-2025 13:29-0400 Respiratory rate 20 /min Dr. Shirley Ortiz MD Work Phone: [facility] 05-09-2025 13:29-0400 SaO2% (BldA) [Mass fraction] 95 % Dr. Shirley Ortiz MD Work Phone: [facility] 05-09-2025 13:29-0400 Systolic blood pressure 124 mm[Hg] Dr. Shirley Ortiz MD Work Phone: [facility] 01-23-2025 12:53-0500 Body height 162.[address] Shirley Ortiz MD Work Phone: [facility] 01-23-2025 12:53-0500 Body mass index (BMI) [Ratio] 33.7 kg/m2 Dr. Shirley Ortiz MD Work Phone: [facility] 01-23-2025 12:53-0500 Body temperature 97.6 [degF] Dr. Shirley Ortiz MD Work Phone: [facility] 01-23-2025 12:53-0500 Body weight 89.[address] Shirley Ortiz MD Work Phone: [facility] 01-23-2025 12:53-0500 Diastolic blood pressure 70 mm[Hg] Dr. Shirley Ortiz MD Work Phone: [facility] 01-23-2025 12:53-0500 Heart rate 72 /min Dr. Shirley Ortiz MD Work Phone: [facility] 01-23-2025 12:53-0500 Respiratory rate 18 /min Dr. Shirley Ortiz MD Work Phone: [facility] 01-23-2025 12:53-0500 SaO2% (BldA) [Mass fraction] 97 % Dr. Shirley Ortiz MD Work Phone: [facility] 01-23-2025 12:53-0500 Systolic blood pressure 134 mm[Hg] Dr. Shirley Ortiz MD Work Phone: [facility] 01-25-2024 12:51-0500 Body height 162.[address] Shirley Ortiz Work Phone: [facility] 01-25-2024 12:51-0500 Body mass index (BMI) [Ratio] 30.7 kg/m2 Dr. Shirley Ortiz Work Phone: [facility] 01-25-2024 12:51-0500 Body temperature 97 [degF] Dr. Shirley Ortiz Work Phone: [facility] 01-25-2024 12:51-0500 Body weight 81.[address] Shirley Ortiz Work Phone: [facility] 01-25-2024 12:51-0500 Diastolic blood pressure 72 mm[Hg] Dr. Shirley Ortiz Work Phone: [facility] 01-25-2024 12:51-0500 Heart rate 65 /min Dr. Shirley Ortiz Work Phone: [facility] 01-25-2024 12:51-0500 Respiratory rate 16 /min Dr. Shirley Ortiz Work Phone: [facility] 01-25-2024 12:51-0500 SaO2% (BldA) [Mass fraction] 96 % Dr. Shirley Ortiz Work Phone: [facility] 01-25-2024 12:51-0500 Systolic blood pressure 120 mm[Hg] Dr. Shirley Ortiz Work Phone: [facility] 09-16-2023 09:12-0400 Diastolic blood pressure 72 mm[Hg] Dr. Ree Gates Work Phone: [facility] 09-16-2023 09:12-0400 Systolic blood pressure 124 mm[Hg] Dr. Ree Gates Work Phone: [facility] 09-16-2023 08:44-0400 Body height 162.[address] Ree Gates Work Phone: [facility] 09-16-2023 08:44-0400 Body mass index (BMI) [Ratio] 31.7 kg/m2 Dr. Ree Gates Work Phone: [facility] 09-16-2023 08:44-0400 Body temperature 97.8 [degF] Dr. Ree Gates Work Phone: [facility] 09-16-2023 08:44-0400 Body weight 83.[address] Ree Gates Work Phone: [facility] 09-16-2023 08:44-0400 Heart rate 68 /min Dr. Ree Gates Work Phone: [facility] 09-16-2023 08:44-0400 Respiratory rate 16 /min Dr. Ree Gates Work Phone: [facility] 09-16-2023 08:44-0400 SaO2% (BldA) [Mass fraction] 98 % Dr. Ree Gates Work Phone: [facility] 06-17-2023 09:26-0400 Diastolic blood pressure 82 mm[Hg] Dr. Ree Gates Work Phone: [facility] 06-17-2023 09:26-0400 Systolic blood pressure 146 mm[Hg] Dr. Ree Gates Work Phone: [facility] 06-17-2023 07:59-0400 Body mass index (BMI) [Ratio] 32.1 kg/m2 Dr. Ree Gates Work Phone: [facility] 06-17-2023 07:59-0400 Body temperature 97.2 [degF] Dr. Ree Gates Work Phone: [facility] 06-17-2023 07:59-0400 Body weight 84.[address] Ree Gates Work Phone: [facility] 06-17-2023 07:59-0400 Heart rate 96 /min Dr. Ree Gates Work Phone: [facility] 06-17-2023 07:59-0400 Respiratory rate 18 /min Dr. Ree Gates Work Phone: [facility] 06-17-2023 07:59-0400 SaO2% (BldA) [Mass fraction] 97 % Dr. Ree Gates Work Phone: [facility] Encounters Encounter Date Encounter Type Care Provider Facility Start: 05-09-2025 End: 05-09-[address] Shirley Ortiz MD -[facility] Work Phone: Start: 05-09-2025 End: 05-09-[address] Shirley Ortiz MD Work Phone: [facility] Work Phone: Start: 02-21-2025 Non-patient / Non-visit Dr. Mana CISNEROS -[facility] Start: 02-21-2025 End: 02-21-[address] Shirley Ortiz MD Work Phone: [facility] Work Phone: Start: 02-21-2025 End: 02-21-[address] Shirley Ortiz MD -[facility] Work Phone: Start: 02-21-2025 End: 02-21-2025 ambulatory Shirley Ortiz Facility:[facility] Start: 01-31-2025 Non-patient / Non-visit Dr. Paul vázquez MD -[facility] Start: 01-31-2025 End: 01-31-[address] Shirley Ortiz MD Work Phone: [facility] Work Phone: Start: 01-31-2025 End: 01-31-[address] Bienvenido Billings [facility] -Cardiovascular Services Work Phone: Start: 01-31-2025 End: 01-31-2025 ambulatory Shirley Ortiz Facility:[facility] Start: 01-23-2025 End: 01-23-[address] Shirley Ortiz MD -[facility] Work Phone: Start: 01-23-2025 End: 01-23-2025 ambulatory Shirley Ortiz Facility:[facility] Start: 09-20-2024 End: 09-20-2024 ambulatory Shirley Ortiz Facility:[facility] Start: 09-20-2024 End: 09-20-2024 ambulatory Shirley Wanglay Facility:[facility] Start: 07-05-2024 End: 07-05-2024 Emergency department patient visit Obinna Garciaangel Facility:[facility] Start: 05-25-2024 End: 05-25-2024 ambulatory Shirley Ortiz Facility:[facility] Start: 01-25-2024 End: 01-25-[address] Shirley Ortiz Work Phone: [facility] Work Phone: Start: 01-25-2024 End: 01-25-[address] Shirley Ortiz Work Phone: [facility] Work Phone: Start: 09-16-2023 End: 09-16-[address] Ree Gates Work Phone: [facility] Work Phone: Start: 09-16-2023 End: 09-16-[address] Ree Gates Work Phone: [facility] Internal [facility] Work Phone: Start: 06-17-2023 End: 06-17-[address] Ree Gates Work Phone: [facility] Work Phone: Procedures Date Procedure Procedure Detail Performing Clinician Start: 02-21-2025 Dual energy X-ray absorptiometry Dr. Shirley Ortiz MD Work Phone: Plan of Treatment Date Care Activity Detail Author Start: 09-16-[address] [facility] Work Phone: Start: 06-17-[address] [facility] Work Phone: DXA Bone [Mass/Area] Bone density [facility] Patient referral [facility] Work Phone: [facility] Immunizations Immunization Date Immunization Notes Care Provider Fa mikkity 09-16-2023 influenza, injectabl e, quadrivalent, preservative free Dr. Ree Gates Work Phone: [facility] Payers Date Payer Category Payer Unknown [id number] 2024 Self-pay [id number] 2024 Medicaid [id number] 2024 Unknown [id number] Medicare MEDICARE PART A B [id number] Unknown COMMERCIAL OTHER [id number] Unknown [facility] [id number] 2.16.8 [id number] Unknown [id number] 2.16.8 [id number] Unknown [id number] 2.16.8 [id number] Unknown [id number] 2.16.8 [id number] Unknown [id number] 2.16.8 [id number] Unknown [id number] 2.16.8 [id number] Unknown [id number] 2.16.8 [id number] Unknown [id number] 2.16.8 [id number] Unknown [id number] 2.16.8 [id number] Unknown [id number] 2.16.8 [id number] Social History Date Type Detail Facility Start: 09-15-2023 End: 01-21-2024 Tobacco smoking status NHIS Unknown if ever smoked [facility] Start: 1940 Sex Assigned At Female [facility] Start: 07-05-2024 Tobacco smoking stat us NCIS Never smoked tobacco (finding) [facility] Start: 02-10-2025 End: 02-26-2025 Sex Female (finding) [facility] Evaluation note 01-23-2025 Note Date & Type Note Facility 01-23-2025 Evaluation note Diagnosis Onset Date Resolution Essential hypertension acute Fe bruary 2024 12:35pm Hard of hearing acute January 23, 2025 12:35pm Lower extremity edema noneactive Feb ruary 2024 12:35pm Heart murmur noneactive December 12:35pm Post-menopausal noneactive January 23, 2025 12:35pm Controlled type 2 diabetes mellitus noneactive January 23, 2025 12:35pm [facility] Work Phone: Evaluation note 01-23-2025 Note Date & Type Note Facility 01-23-2025 Evaluation note Diagnosis Onset Date Resolution Essential hypertension acute Fe bruary 2024 12:35pm Hard of hearing acute January 23, 2025 12:35pm Lower extremity edema noneactive Feb ruary 2024 12:35pm Heart murmur noneactive December 12:35pm Post-menopausal noneactive January 23, 2025 12:35pm Controlled type 2 diabetes mellitus noneactive January 23, 2025 12:35pm Essential hypertension acute Ju 2024 1:19pm Hard of hearing acute April 1:19pm Screening for depression noneactive May 09, 2025 1:19pm Lower extremity edema noneactive Apr 1:19pm Heart murmur noneactive May 09, 2 025 1:19pm Post-menopausal noneactive April 1:19pm Controlled type 2 diabetes mellitus noneactive May 09 1:19pm [facility] Work Phone: Evaluation note Note Date & Type Note Facility Evaluation note Diagnosis Onset Date Essential hypertension acute Hard of hearing acute Establishing care with shimon lee, encounter for noneactive Controlled type 2 diabetes mellitus noneactive Essential hypertension acute Hard of hearing acute Immunization due noneactive Tooth erosion noneactive Controlled type 2 diabetes mellitus noneactive [facility] Work Phone: Evaluation note Note Date & Type Note Facility Evaluation note Diagnosis Onset Date Essential hypertension acute Elevated serum creatinine no neactive Controlled type 2 diabetes mellitus noneactive [facility] Work Phone: Hospital Discharge instructions Note Date & Type Note Facility Hospital Discharge instructions Ambulatory OrdersDental Location: None Selected [facility] Work Phone: Reason for referral (narrative) Note Date & Type Note Facility Reason for referral (narrative) No reason for referral information available [facility] Work Phone: Chief Complaint and Reason for Visit Chief Complaint [employer]VESTMENT ANALYST EST CARE-PPW SENT 3 M FU Reason for Visit Essential hypertensi on Hard of hearing Establishing care with new doctor, encounter for Controlled type 2 diabetes mellitus Essential hypertension Hard of hearing Immunization due Tooth erosion Controlled type 2 diabetes mellitus Chief Complaint FOLLOW UP Reason for Visit Essential hypertensi on Elevated serum creatinine Controlled type 2 diabetes mellitus Chief Complaint Admit Date 4 M FU January 23, 2025 12:35pm Other specified peripheral vascular dise ases January 31, 2025 9:15am Reason for Visit Admit Date Essential hypertension January 23 12:35pm Hard of hearing January 23, 2025 12:35pm Lower extremity edema January 23 12:35pm Heart murmur January 23, 2025 12:35pm Post-menopausal January 23, 2025 12:35pm Controlled type 2 diabetes mellitus [facility] 2024 12:35pm Chief Complaint Admit Date 4 M FU January 23, 2025 12:35pm Other specified peripheral vascular dise [facility] January 31, 2025 9:15am [facility] February 21, 2025 12: 45pm Chief Complaint Admit Date 4 M FU January 23, 2025 12:35pm Other specified peripheral vascular dise ases January 31, 2025 9:15am [facility] February 21, 2025 12: 45pm 3 M FU May 09, 2025 1:19 pm Reason for Visit Admit Date Essential hypertension January 23 12:35pm Hard of hearing January 23, 2025 12:35pm Lower extremity edema January 23 12:35pm Heart murmur January 23, 2025 12:35pm Post-menopausal January 23, 2025 12:35pm Controlled type 2 diabetes mellitus [facility] 2024 12:35pm Essential hypertension May 09, 2025 1 :19pm Hard of hearing May 09, 2025 1:19 pm Screening for depression May 09, 2025 1:19pm Lower extremity edema May 09, 2025 1: 19pm Heart murmur May 09, 2025 1:19 pm Post-menopausal May 09, 2025 1:19 pm Controlled type 2 diabetes mellitus May 09, 2025 1:19pm Family History No Family History Records Found Relationship Condition Age at Onset Recorded Date/T sandy aunt Asthma Unknown uncle Alcoholism Unknown mother Hypertension Unknown aunt Malignant neoplasm of breast Unknown uncle Cerebrovascular accident (CVA) Unknown Advance Directives No Advanced Directives Records Found Advance Directive Response Recorded Date/ Time Living Will No July 05, 2024 1:20pm Power of Medicaid Billing Specialist No July 05 1:20pm Advance Directive Response Recorded Date/ Time Living Will No July 05, 2024 1:20pm Do you have a Healthcare Power of Medicaid Billing Specialist? No July 05, 2024 1:20pm Summary Purpose Additional Source Comments Care Teams (unrecognized sec tion and content) Team Status: Active Member Role Status Dates Dr. Ree Gates MD Family Provider Active Dr. Shirley Ortiz MD Primary Care Provider Active Team Status: Inactive Member Role Status Dates Dr. Ree Gates MD Primary Care Provider, Referrin g Provider Active Dr. Sihrley Ortiz MD Attending Provider Active Team Status: Inactive Member Role Status Dates Dr. Shirley Ortiz MD Primary Care Pro vider, Attending Provider, Referring Provider Active Team Status: Inactive Member Role Status Dates Dr. Shirley Ortiz MD Primary Care Provider, Attendi ng Provider Active Team Status: Active Member Role Status Dates Dr. Shirley Ortiz MD Primary Care Provider Active Team Status: Inactive Member Role Status Dates Dr. Shirley Ortiz MD Primary Care Provider Active Start: January 23, 2025 End: January 23, 2025 Dr. Shirley Ortiz MD Attending Provider Active Start: January 23, 2025 End: January 23, 2025 Dr. Shirley Ortiz MD Referring Provider Active Start: January 23, 2025 End: January 23, 2025 Team Status: Inactive Member Role Status Dates Dr. Shirley Ortiz MD Primary Care Provider Active Start: January 31, 2025 End: January 31, 2025 Dr. Bienvenido Billings DPM Attending Provider Active Start: January 31, 2025 End: January 31, 2025 Dr. Bienvenido Billings DPM Referring Provider Active Start: January 31, 2025 End: January 31, 2025 Team Status: Active Member Role Status Dates Dr. Shirley Ortiz MD Primary Care Provider Active Start: January 31, 2025 Dr. Paul Sheldon MD Attending Provider Active S tart: January 31, 2025 Dr. Bienvenido Manuelito , DPM Referring Provider Active Start: January 31, 2025 Team Status: Inactive Member Role Status Dates Dr. Shirley Ortiz MD Primary Care Provider Active Start: February 21, 2025 End: February 21, 2025 Dr. Shirley Ortiz MD Attending Provider Active Start: February 21, 2025 End: February 21, 2025 Dr. Shirley Ortiz MD Referring Provider Active Start: February 21, 2025 End: February 21, 2025 Team Status: Active Member Role Status Dates Dr. Shirley Ortiz MD Primary Care Provider Active Start: February 21, 2025 Dr. Kris Duke MD Attending Provider Active S tart: February 21, 2025 Team Status: Inactive Member Role Status Dates Dr. Shirley Ortiz MD Primary Care Provider Active Start: May 09, 2025 End: May 09, 2025 Dr. Shirley Ortiz MD Attending Provider Active Start: May 09, 2025 End: May 09, 2025 Dr. Shirley Ortiz MD Referring Provider Active Start: May 09, 2025 End: May 09, 2025 Goals (unrecognized section and content) Goals may be documented in a n alternate sectionGoals may be documented in an alternate sectionGoals may be documented in an alternate sectionGoals may be documented in an alternate sectionGoals may be documented in an alternate section INFORMATION SOURCE (unrecogn ized section and content) DATE CREATED AUTHOR 05/11/2025 [facility] FOR RECORDS PERTAINING TO PATIENTS WHO ARE OR HAVE BEEN ENROLLED IN A CHEMICAL DEPENDENCY/SUBSTANCEABUSE PROGRAM, SOME INFORMATION MAY BE OMITTED. This clinical summary was aggregated from multiple sources. Caution should be exercised in using it in the provision of clinical care. This summary normalizes information from multiple sources, and as a consequence, information in this document may materially change the coding, format and clinical context of patient data. In addition, data may be omitted in some cases. CLINICAL DECISIONS SHOULD BE BASED ON THE PRIMARY CLINICAL RECORDS. [employer] provides no warranty or guarantee of the accuracy or completeness of information in this document.
[2025-08-21] MEDS: Lidocaine 1% (20 ml mdv) 20 ML Vial 5 ML INFILT (19:47)
[2025-08-21] MEDS: Smz/Tmp Ds Tablet 1 TABLET PO (19:47)
[2025-08-21] MEDS: Lidocaine/Epi/Tetracaine 50 ML 1 APPLIC TOPICAL (19:52)
[2025-08-21 20:52] VITALS: BP 135/71; PULSE 66; RESP 17; TEMP 36.5; O2SAT 100
== END 2025-08-21 20:54 | disposition home or self-care (01) ==
PROVIDERS: Emergency Provider Emergency Medicine; PCP Internal Medicine; Visit Provider Emergency Medicine
DX: L02.212 Cutaneous abscess of back [any part, except buttock and flank] (principal); E11.9 Type 2 diabetes mellitus without complications; I10 Essential (primary) hypertension; Z79.82 Long term (current) use of aspirin; Z79.84 Long term (current) use of oral hypoglycemic drugs; Z79.899 Other long term (current) drug therapy
CPT/HCPCS: 10060; 99283

== ENCOUNTER 2025-11-08 16:07 | Emergency (ER) | payer MEDICARE, MEDICAID, SELFPAY ==
[2025-11-08 16:08] VITALS: BP 141/67; PULSE 71; RESP 16; TEMP 36.6; O2SAT 100; BMI 29.4
--- NOTE | 2025-11-08 16:47 | EX.ED.DYSGE1 ---
HPI History of Present Illness Chief Complaint: Complaint Informant: patient Onset/Context/Timing Onset: Weeks (1) Context: Gradual Onset Timing: Continuous Quality: Sargeant, red Location: Urine Worsened by: Nothing Relieved by: Nothing Narrative Narrative: Patient presents with hematuria has been getting worse over the past week. Patient states her urine is pink and red. Patient states she thought it was due to something she was drinking. Patient states she stopped drinking that. Patient states that the symptoms have persisted. Patient denies any dysuria or frequency. Patient states nothing makes it worse and nothing makes it better. Patient denies any fevers or chills. Patient denies any back pain. Patient denies any nausea or vomiting. [facility] Medical History Cholecystectomy planned Vision problems Diabetes Hx of cataract Home Medications ?Medication ?Instructions ?Recorded ?Last Taken ?Type multivitamin 1 tab PO DAILY 06/17/23 Unknown History calcium carbonate (Calcium 500) 600 mg PO DAILY 01/23/25 Unknown History aspirin 81 mg tablet,delayed 81 mg PO DAILY #90 tabs 05/09/25 Unknown Rx release metformin 500 mg tablet 500 mg PO BID #180 tabs 05/09/25 Unknown Rx atorvastatin 10 mg tablet 10 mg PO DAILY #90 tabs 10/30/25 Unknown Rx lisinopril 20 1 tab PO DAILY #90 tabs 10/30/25 Unknown Rx mg-hydrochlorothiazide 25 mg tablet metoprolol succinate 100 mg 100 mg PO DAILY #90 tabs 11/01/25 Unknown Rx tablet,extended release 24 hr cephalexin 500 mg capsule 500 mg PO Q6 #12 CAPSULES 11/08/25 Unknown Rx Allergy/AdvReac Type Severity Reaction Status Date / Time shellfish derived Allergy Severe Anaphylaxis Verified 11/08/25 16:11 chocolate flavor Allergy Rash Verified 11/08/25 16:11 Family History Aunt Asthma Uncle Alcoholism Mother Hypertension Aunt Breast cancer Uncle CVA (cerebral vascular accident) Surgical History H/O skin graft Cataract extraction status Social History household members: none current occupational status: retired current occupation: [employer] Smoking Status: Never smoker Electronic Cigarette Use: not used alcohol intake: never substance use type: does not use what type of physical activity do you participate in: none do you feel safe at home: Yes ROS ROS ED Constitutional Constitutional ED: Denies chills or fever(s) Eyes Eyes: Denies blurry vision or change in vision ENT ENT ED: Denies rhinorrhea or sore throat Cardiovascular Cardiovascular: Denies chest pain or palpitations Respiratory/Chest Respiratory/Chest: Denies cough or dyspnea Gastrointestinal Gastrointestinal: Denies nausea or vomiting Genitourinary Genitourinary ED: Reports hematuria; Denies dysuria Musculoskeletal Musculoskeletal: Denies back pain or neck pain Integumentary Reports rash; Denies abscess Neurologic Neurologic: Denies headache(s) or weakness Allergic/Immunologic Allergic/Immunologic ED: Denies mouth swelling or urticaria EXAM Physical Exam Const Vital Signs: 11/08/25 16:08 11/08/25 18:45 11/08/25 20:38 Temperature 97.9 F 97.5 F L 98 F Temperature Source Oral Oral Oral Pulse Rate 71 57 L 56 L Respiratory Rate 16 16 16 Blood Pressure 141/67 H 106/58 L 126/60 H Blood Pressure Mean 91 74 82 Pulse Ox 100 100 100 Oxygen Delivery Method Room Air Room Air Room Air 11/08/25 20:44 Temperature 98 F Temperature Source Pulse Rate 56 L Respiratory Rate 16 Blood Pressure 126/60 H Blood Pressure Mean 82 Pulse Ox 100 Oxygen Delivery Method Positive well nourished and well developed General Appearance ED: well developed and NAD HEENT Reports moist mucous membranes Neck supple and no JVD Resp normal respiratory effort and clear to auscultation bilaterally Cardio regular rate and regular rhythm GI non-tender and non-distended Palpation: soft Extremity General Extremety ED: Yes edema; Negative for tenderness General Extremity: edema Neuro oriented x3, CN's II-XII intact bilaterally and no sensory deficits noted Sensorium / Orientation: alert Motor Exam: strength 5/5 throughout Psych mental status grossly normal MDM MDM MDM Narrative Medical decision making narrative: Differential diagnose include urinary tract infection, hematuria, anemia, coagulopathy. Urinalysis will be obtained to assess for urinary tract infection and hematuria. CBC will be obtained to assess for leukocytosis and anemia. Basic metabolic profile will be obtained to assess for electrolyte abnormality renal function. PT with INR and PTT will be obtained to assess for coagulopathy. Lab Data Attestation: I reviewed the patient's lab results. Lab results narrative: CBC was reviewed. There is a mild anemia with a hemoglobin of 10.0 and hematocrit 32.4. Platelets were normal. Basic metabolic profile was reviewed. BUN was slightly elevated at 22. Creatinine was normal. Glucose was mildly elevated at 142. The remainder is within normal limits. Urinalysis was reviewed. There is red turbid urine. Occult blood was 250 with greater than 100 red blood cells. Leukocyte esterase was 100 with positive nitrates. There are 10-25 white blood cells and 2+ bacteria. Labs: Laboratory Results - last 24 hr 11/08/25 11/08/25 17:25 17:30 WBC 7.3 RBC 3.34 L Hgb 10.0 L Hct 32.4 L MCV 97.0 MCH 29.9 MCHC 30.9 L RDW Std Deviation 48.9 H RDW Coeff of Juma 13.6 Plt Count 237 MPV 10.9 Immature Gran % (Auto) 0.400 Neut % (Auto) 61.7 Lymph % (Auto) 27.4 [place] % (Auto) 8.6 Eos % (Auto) 1.5 Baso % (Auto) 0.4 Absolute Neuts (auto) 4.5 Absolute Lymphs (auto) 2.00 Nucleated RBC % 0 PT 13.8 INR 1.0 APTT 25.6 Sodium 141 Potassium 3.9 Chloride 104 Carbon Dioxide 26.5 Anion Gap 11 BUN 22 H Creatinine 1.00 Estim Creat Clear Calc 47.04 L Est GFR (MDRD) Non-Af 57 L BUN/Creatinine Ratio 21.9 H Glucose 142 H Calcium 9.6 Urine Color Red Urine Clarity Turbid Urine pH 6.5 Ur Specific [place] 1.010 Urine Protein 100 H Urine Glucose (UA) Normal Urine Ketones Negative Urine Occult Blood 250 H Urine Nitrite Positive H Urine Bilirubin Negative Urine Urobilinogen 1 H Ur Leukocyte Esterase 100 H Urine RBC > 100 SEEN Urine WBC 10-25 SEEN Ur Squamous Epith Cells 5-10 SEEN Ur Transition Epith Cell 0-5 SEEN Urine Bacteria 2+ Urine Mucus 0 SEEN Additional Tests and Interventions Additional Tests or Interventions: Urine culture was ordered. Treatment and Re-Evaluation :: Patient was advised of her findings. Patient was given a dose of Keflex here. Patient was given a prescription for Keflex. Patient was instructed to drink plenty of fluids. Patient was instructed to follow-up with her primary care physician in 5 to 7 days. Patient was instructed to return if worse in any way. Patient understood and was agreeable with the plan. All questions were answered. Discharge Plan Triage Chief Complaint: Complaint ED Provider: Paul El Dx/Rx/DC Orders Clinical Impression: Acute hemorrhagic cystitis, Hematuria Instructions: ED Cystitis Female Adult Prescriptions: New cephalexin 500 mg capsule 500 mg PO Q6 Qty: 12 0RF No Action multivitamin Tablet 1 tab PO DAILY calcium carbonate [Calcium 500] 500 mg calcium (1,250 mg) tablet,chewable 600 mg PO DAILY aspirin 81 mg tablet,delayed release (DR/EC) 81 mg PO DAILY Qty: 90 1RF metformin 500 mg tablet 500 mg PO BID Qty: 180 1RF lisinopril-hydrochlorothiazide 20-25 mg tablet 1 tab PO DAILY Qty: 90 1RF atorvastatin 10 mg tablet 10 mg PO DAILY Qty: 90 1RF metoprolol succinate 100 mg tablet extended release 24 hr 100 mg PO DAILY Qty: 90 1RF Primary Care Provider: Shirley Ortiz Referrals: Shirley Ortiz MD [Primary Care Provider, Internal Medicine] - 3-5 Days Print Language: Frisian Disposition Disposition: Home, Self Care Discharge Date/Time: 11/08/25 20:47
[2025-11-08 17:35] LABS: Mucous, Urine 0 SEEN /hpf (<or=2+)
[2025-11-08 17:37] LABS: Color, Urine Red (Yellow); Glucose, Dipstick Normal (Normal); Ketone-Dipstick Negative (Negative); Leukocyte Esterase-Dipstick 100 /ul (Negative); Nitrite-Dipstick Positive (Negative); Occult Blood-Urine 250 /ul (Negative); Protein-Dipstick 100 mg/dl (Negative); Specific Gravity, Urine 1.010 (1.002-1.030); Urine Bilirubin Dipstick Negative (Negative)
[2025-11-08 17:42] LABS: Hematocrit 32.4 % (37-47); Hemoglobin 10.0 g/dL (12.0-15.0); Immature Granulocytes Count 0.030 X10^3/uL (0.0-0.0); Mean Corp Hgb Conc 30.9 g/dL (32-36); Mean Corpuscular Volume 97.0 fL (81-99); Mean Platelet Vol. 10.9 fl (6.2-12.0); NRBC Flagged by Analyzer 0 % (0-5); Platelet Count 237 K/mm3 (150-450); RBC Distribution Width CV 13.6 % (11.6-14.6); RBC Distribution Width SD 48.9 fl (35.1-43.9); Red Blood Count 3.34 M/mm3 (4.2-5.4); White Blood Count 7.3 K/mm3 (4.4-11.0)
[2025-11-08 18:11] LABS: Anion Gap 11 (5-15); BUN 22 mg/dL (4-19); BUN/Creat Ratio 21.9 RATIO (10-20); Calcium,Total 9.6 mg/dL (7.6-11.0); Carbon Dioxide 26.5 mmol/L (21.0-32.0); Chloride 104 mmol/L (98-108); Estimated Creatinine Clearance 47.04 ml/min (50-250); Glucose 142 mg/dL (70-99); Potassium 3.9 mmol/L (3.3-5.1)
[2025-11-08 18:12] LABS: Partial Thromboplast Time 25.6 Seconds (24.1-36.2); Prothrombin Time (Protime)PT. 13.8 SECONDS (11.7-14.9)
[2025-11-08 18:45] VITALS: BP 106/58; PULSE 57; RESP 16; TEMP 36.4; O2SAT 100
[2025-11-08 19:32] LABS: Red Blood Cells-Urine > 100 SEEN /hpf (0-5)
[2025-11-08 19:34] LABS: Squamous Epithelial Cells - UA 5-10 SEEN /hpf (5-10); Transitional Epithelial - Ur 0-5 SEEN /hpf (0-5)
[2025-11-08 20:38] VITALS: BP 126/60; PULSE 56; RESP 16; TEMP 36.6; O2SAT 100
[2025-11-08 20:44] VITALS: BP 126/60; PULSE 56; RESP 16; TEMP 36.6; O2SAT 100
== END 2025-11-08 20:47 | disposition home or self-care (01) ==
PROVIDERS: Emergency Provider Emergency Medicine; PCP Internal Medicine; Visit Provider Emergency Medicine
DX: N30.01 Acute cystitis with hematuria (principal); E11.9 Type 2 diabetes mellitus without complications; Z79.84 Long term (current) use of oral hypoglycemic drugs
CPT/HCPCS: 80048; 81001; 85025; 85610; 85730; 87086; 99283; A4216